=== PATIENT | female | born 1980 | race Caucasian/White ===

== ENCOUNTER 2016-10-09 13:57 | Emergency (ER) | payer MEDICAID ==
[~2016-10-09] VITALS: Ht 160 cm; Wt 84.0 kg
[~2016-10-09 13:57] MED LIST: ENOX40SY4 SQ; HYDR-3240 PO; LEVE100020 PO; METF500T4 PO; PNV1TABL4 PO
[2016-10-09] MEDS ORDERED: SODIUM CHLORIDE 0.9% 1,000 ML IV ONE (14:39)
[2016-10-09] MEDS ORDERED: ONDANSETRON 2MG/ML, 2ML IVPush ONE (15:00)
[2016-10-09] MEDS ORDERED: MORPHINE SULFATE 4 MG/ML, 1ML IVPush PRN (15:00)
[2016-10-09 15:06] LABS: HEMOGLOBIN 12.8 g/dL (11.7-16.4)
[2016-10-09 15:12] LABS: BLOOD UREA NITROGEN 27 mg/dL (7-18)
[2016-10-09] MEDS ORDERED: MORPHINE SULFATE 4 MG/ML, 1ML ONE (15:37)
[2016-10-09] MEDS ORDERED: ONDANSETRON 2MG/ML, 2ML ONE (15:37)
[2016-10-09 18:11] VITALS: BP 109/58
== END 2016-10-09 18:13 | disposition home or self-care (01) ==
LOC: ED 14:20
DX: R10.30 Lower abdominal pain, unspecified (principal); E11.9 Type 2 diabetes mellitus without complications; J45.909 Unspecified asthma, uncomplicated; Z90.49 Acquired absence of other specified parts of digestive tract; Z88.0 Allergy status to penicillin; Z88.2 Allergy status to sulfonamides
CPT/HCPCS: 36415; 76801; 80048; 82040; 85025; 96361; 96374; 96375; 99285; J2405; J7030

== ENCOUNTER 2016-11-06 09:20 | Emergency (ER) | payer SELFPAY ==
[~2016-11-06] VITALS: Ht 160 cm; Wt 77.0 kg
[~2016-11-06 09:20] MED LIST changes: +ALBU8.5H3 INH; +INSU100I17 SQ; +WARF5TAB7 PO
[2016-11-06] MEDS ORDERED: SODIUM CHLORIDE 0.9% 1,000 ML IV ONE (09:44)
[2016-11-06] MEDS ORDERED: ONDANSETRON 2MG/ML, 2ML IVPush ONE (10:00)
[2016-11-06] MEDS ORDERED: SODIUM CHLORIDE 0.9% 1,000ML IVBOLUS ONE (10:00)
[2016-11-06] MEDS ORDERED: SODIUM CHLORIDE FLUSH 10ML SYR IVF ONE (10:00)
[2016-11-06 10:22] LABS: ASPARTATE AMINO TRANSFERASE 15 U/L (15-37); BLOOD UREA NITROGEN 11 mg/dL (7-18)
[2016-11-06 10:40] LABS: PATH.CAST-FLAG NOT PRESENT; SPERM-FLAG NOT PRESENT; SRC-FLAG NOT PRESENT; XTAL-FLAG NOT PRESENT; YLC-FLAG NOT PRESENT
[2016-11-06] MEDS ORDERED: ONDANSETRON ODT 4 MG PO ONE (11:00)
[2016-11-06] MEDS ORDERED: CEFTRIAXONE 1,000 MG ONE ×2 (11:08→11:30)
[2016-11-06] MEDS ORDERED: ONDANSETRON ODT 4 MG ONE (11:09)
[2016-11-06 11:46] VITALS: BP 106/70
[2016-11-06] MEDS ORDERED: CEFTRIAXONE 1,000 MG IM ONE (12:00)
== END 2016-11-06 11:48 | disposition home or self-care (01) ==
LOC: ED 09:34
DX: D72.829 Elevated white blood cell count, unspecified (principal); N30.90 Cystitis, unspecified without hematuria; F17.200 Nicotine dependence, unspecified, uncomplicated; I10 Essential (primary) hypertension; E11.65 Type 2 diabetes mellitus with hyperglycemia; Z86.718 Personal history of other venous thrombosis and embolism
CPT/HCPCS: 36415; 71010; 80053; 81001; 82010; 84703; 85025; 85610; 87086; 96372; 99285; J0696; Q0162; 87147

== ENCOUNTER 2016-11-10 11:34 | Emergency (ER) | payer SELFPAY | END 2016-11-10 13:00 | disposition left against medical advice (07) | LOC: ED 12:54 | DX: L29.9 Pruritus, unspecified (principal) ==

== ENCOUNTER 2016-11-13 07:43 | Emergency (ER) | payer MEDICAID ==
[~2016-11-13] VITALS: Ht 160 cm; Wt 82.6 kg
[2016-11-13 07:54] VITALS: BP 107/67
[2016-11-13] MEDS ORDERED: WARF10TA PO (08:32)
[2016-11-13] MEDS ORDERED: INSU100I17 SQ (08:32)
[2016-11-13] MEDS ORDERED: WARF5TAB PO (08:32)
[2016-11-13] MEDS ORDERED: FAMOTIDINE 20 MG TABLET ONE (08:57)
[2016-11-13] MEDS ORDERED: DIPHENHYDRAMINE 50 MG/ML, 1ML ONE (08:57)
[2016-11-13] MEDS ORDERED: FAMOTIDINE 20 MG TABLET PO ONE (09:00)
[2016-11-13] MEDS ORDERED: DIPHENHYDRAMINE 50 MG/ML, 1ML IM ONE (09:00)
== END 2016-11-13 10:29 | disposition home or self-care (01) ==
LOC: ED 09:20
DX: T36.0X5A Adverse effect of penicillins, initial encounter (principal); Y92.89 Other specified places as the place of occurrence of the external cause; E11.9 Type 2 diabetes mellitus without complications; F17.210 Nicotine dependence, cigarettes, uncomplicated; I10 Essential (primary) hypertension; J45.909 Unspecified asthma, uncomplicated; Z88.8 Allergy status to other drugs, medicaments and biological substances
CPT/HCPCS: 87081; 87880; 96372; 99284; J1200

== ENCOUNTER 2016-11-17 12:12 | Emergency (ER) | payer MEDICAID ==
[~2016-11-17] VITALS: Ht 160 cm; Wt 81.6 kg
[~2016-11-17 12:12] MED LIST changes: +WARF10TA PO; +WARF5TAB PO
[2016-11-17] MEDS ORDERED: ALBUTEROL/IPRATROPIUM 2.5MG/0.5MG, 3 ML NPPB ONE (13:00)
[2016-11-17] MEDS ORDERED: ALBUTEROL SULFATE 2.5 MG/3 ML ONE (13:09)
[2016-11-17 13:52] VITALS: BP 139/67
== END 2016-11-17 13:54 | disposition home or self-care (01) ==
LOC: ED 13:48
DX: J45.31 Mild persistent asthma with (acute) exacerbation (principal); B34.9 Viral infection, unspecified; I10 Essential (primary) hypertension; E11.9 Type 2 diabetes mellitus without complications
CPT/HCPCS: 71020; 94640; 99284; J7620

== ENCOUNTER 2016-11-25 23:00 | Emergency (ER) | payer MEDICAID ==
[~2016-11-25] VITALS: Ht 165.1 cm; Wt 83.3 kg
[2016-11-25 23:02] VITALS: BP 168/75
[2016-11-26] MEDS ORDERED: LORazepam 1MG TABLET PO ONE
== END 2016-11-26 00:14 | disposition left against medical advice (07) ==
LOC: ED 23:59
DX: F15.159 Other stimulant abuse with stimulant-induced psychotic disorder, unspecified (principal); F15.129 Other stimulant abuse with intoxication, unspecified; Z90.49 Acquired absence of other specified parts of digestive tract; E11.9 Type 2 diabetes mellitus without complications
CPT/HCPCS: 99284

== ENCOUNTER 2017-01-16 08:20 | Emergency (ER) | payer MEDICAID ==
[~2017-01-16] VITALS: Ht 160 cm; Wt 85.3 kg
[2017-01-16] MEDS ORDERED: SODIUM CHLORIDE FLUSH 10ML SYR IVF ONE (09:30)
[2017-01-16] MEDS ORDERED: ONDANSETRON 2MG/ML, 2ML IVPush ONE (09:30)
[2017-01-16] MEDS ORDERED: SODIUM CHLORIDE 0.9% 1,000ML IVBOLUS ONE (09:30)
[2017-01-16] MEDS ORDERED: MORPHINE SULFATE 4 MG/ML, 1ML IVPush PRN (09:30)
[2017-01-16 09:48] LABS: BLOOD UREA NITROGEN 15 mg/dL (7-18)
[2017-01-16 09:53] LABS: ASPARTATE AMINO TRANSFERASE 18 U/L (15-37)
[2017-01-16] MEDS ORDERED: ONDANSETRON 2MG/ML, 2ML ONE (10:06)
[2017-01-16] MEDS ORDERED: MORPHINE SULFATE 4 MG/ML, 1ML ONE (10:06)
[2017-01-16] MEDS ORDERED: WARF10TA PO (10:20)
[2017-01-16] MEDS ORDERED: INSU100C5 SQ-INSULIN (10:21)
[2017-01-16] MEDS ORDERED: GABA300C10 PO (10:23)
[2017-01-16] MEDS ORDERED: OXYC10TA6 PO (10:23)
[2017-01-16] MEDS ORDERED: [UNRECOGNIZED DRUG - OTHER] PO (10:23)
[2017-01-16 11:24] VITALS: BP 100/71
== END 2017-01-16 11:35 | disposition home or self-care (01) ==
LOC: ED 11:15
DX: K52.9 Noninfective gastroenteritis and colitis, unspecified (principal); I10 Essential (primary) hypertension; F17.210 Nicotine dependence, cigarettes, uncomplicated; E11.9 Type 2 diabetes mellitus without complications; J45.909 Unspecified asthma, uncomplicated
CPT/HCPCS: 36415; 80053; 81003; 82010; 82800; 84703; 85025; 85610; 96361; 96374; 96375; 99284; J2405; J7030

== ENCOUNTER 2017-01-27 20:25 | Emergency (ER) | payer MEDICAID, OTHER ==
[~2017-01-27] VITALS: Ht 170.2 cm; Wt 88.4 kg
[~2017-01-27 20:25] MED LIST changes: +GABA300C10 PO; +INSU100C5 SQ-INSULIN; +OXYC10TA6 PO; +[UNRECOGNIZED DRUG - OTHER] PO
[2017-01-27] MEDS ORDERED: ONDANSETRON 2MG/ML, 2ML IVPush ONE (20:30)
[2017-01-27] MEDS ORDERED: SODIUM CHLORIDE FLUSH 10ML SYR IVF ONE (20:30)
[2017-01-27] MEDS ORDERED: SODIUM CHLORIDE 0.9% 1,000ML IVBOLUS ONE (20:30)
[2017-01-27] MEDS ORDERED: PLEASE ENTER HEIGHT AND WEIGHT MC SCH (21:00)
[2017-01-27 21:20] LABS: ASPARTATE AMINO TRANSFERASE 16 U/L (15-37); BLOOD UREA NITROGEN 13 mg/dL (7-18)
[2017-01-27] MEDS ORDERED: ONDANSETRON 2MG/ML, 2ML ONE (21:37)
[2017-01-27 23:35] LABS: HCG UR OBC PASS
[2017-01-28 00:34] VITALS: BP 119/74
== END 2017-01-28 00:37 | disposition home or self-care (01) ==
LOC: ED 23:08
DX: E86.0 Dehydration (principal); R11.2 Nausea with vomiting, unspecified; N30.00 Acute cystitis without hematuria; R19.7 Diarrhea, unspecified; I10 Essential (primary) hypertension; E11.65 Type 2 diabetes mellitus with hyperglycemia; J45.909 Unspecified asthma, uncomplicated; M54.30 Sciatica, unspecified side; Z90.49 Acquired absence of other specified parts of digestive tract
CPT/HCPCS: 36415; 80053; 81001; 81025; 85025; 87086; 96361; 96374; 99285; J2405; J7030

== ENCOUNTER 2017-02-21 13:24 | Inpatient (IN) | payer MEDICAID, OTHER ==
[~2017-02-21] VITALS: Ht 165.1 cm; Wt 87.7 kg
[2017-02-21] MEDS ORDERED: SODIUM CHLORIDE 0.9% 1,000ML IVBOLUS ONE (14:00)
[2017-02-21] MEDS ORDERED: LEVETIRACETAM 500 MG in SODIUM CHLORIDE 0.9% 100 ML IV ONE (14:00)
[2017-02-21] MEDS ORDERED: PLEASE ENTER HEIGHT AND WEIGHT MC SCH (14:00)
[2017-02-21] MEDS ORDERED: SODIUM CHLORIDE FLUSH 10ML SYR IVF ONE (14:00)
[2017-02-21 14:26] LABS: HEMATOCRIT 42.3 % (34.6-47.8); HEMOGLOBIN 14.3 g/dL (11.7-16.4); WHITE BLOOD COUNT 9.4 x10^3/uL (3.4-10)
[2017-02-21 14:31] LABS: BLOOD UREA NITROGEN 8 mg/dL (7-18)
[2017-02-21 14:56] LABS: PATH.CAST-FLAG NOT PRESENT; SPERM-FLAG NOT PRESENT; SRC-FLAG NOT PRESENT; XTAL-FLAG NOT PRESENT; YLC-FLAG NOT PRESENT
[2017-02-21] MEDS ORDERED: LORazepam 2 MG/ML, 1ML ONE ×3 (14:58→15:34)
[2017-02-21] MEDS ORDERED: OMEP-110 PO (15:29)
[2017-02-21] MEDS ORDERED: FLUT1AER INH (15:29)
[2017-02-21] MEDS ORDERED: PRED5TAB25 PO (15:29)
[2017-02-21] MEDS ORDERED: MULT-208 PO (15:29)
[2017-02-21] MEDS ORDERED: PHOS118S17 PO (15:30)
[2017-02-21] MEDS ORDERED: LEVE750T8 PO (15:30)
[2017-02-21] MEDS ORDERED: DIPH25CA61 PO (15:30)
[2017-02-21] MEDS ORDERED: WARF7.5T6 PO (15:30)
[2017-02-21] MEDS ORDERED: LORazepam 2 MG/ML, 1ML IVPush ONE ×3 (15:30→16:00)
[2017-02-21] MEDS ORDERED: LEVE500T8 PO (15:30)
[2017-02-21] MEDS ORDERED: CITA20TA9 PO (15:30)
[2017-02-21] MEDS ORDERED: LEVETIRACETAM 1,500 MG in SODIUM CHLORIDE 0.9% 100 ML IV ONE (15:30)
[2017-02-21] MEDS ORDERED: HUM100VI6 SQ ×2 (15:30)
[2017-02-21] MEDS ORDERED: ACET-1757 PO (15:30)
[2017-02-21] MEDS: LORazepam 2 MG/ML, 1ML IVPush PRN ×2 (16:02→20:35)
[2017-02-21] MEDS ORDERED: ONDANSETRON 2MG/ML, 2ML IVPush PRN (16:30)
[2017-02-21] MEDS ORDERED: OXYcodone IR 5MG TABLET PO PRN (16:30)
[2017-02-21] MEDS ORDERED: POLYETHYLENE GLYCOL 17 GM PACKET PO PRN (16:30)
[2017-02-21] MEDS ORDERED: LORazepam 2 MG/ML, 1ML IVPush PRN (16:30)
[2017-02-21] MEDS ORDERED: LABETALOL 5MG/ML, 20ML IVPush PRN (16:30)
[2017-02-21] MEDS: LEVETIRACETAM 1,000 MG in SODIUM CHLORIDE 0.9% 100 ML IV SCH (16:30)
[2017-02-21] MEDS: SODIUM CHLORIDE 0.9% 1,000 ML IV SCH ×2 (19:35→22:58)
[2017-02-21] MEDS: INSULIN ASPART 100 UNITS/ML, PEN SQ-INSULIN SCH (21:00)
[2017-02-21] MEDS ORDERED: LORazepam 20 MG in SODIUM CHLORIDE 0.9% 240 ML IV PRN (21:00)
[2017-02-21] MEDS ORDERED: PHYTONADIONE 10 MG/ML, 1ML SQ ONE (23:00)
[2017-02-22 01:06] VITALS: BP 118/55
[2017-02-22] MEDS: SODIUM CHLORIDE 0.9% 1,000 ML IV SCH ×3 (03:39→18:30)
[2017-02-22] MEDS: LEVETIRACETAM 1,000 MG in SODIUM CHLORIDE 0.9% 100 ML IV SCH ×2 (04:19→17:25)
[2017-02-22] MEDS: LORazepam 2 MG/ML, 1ML IVPush PRN (04:29)
[2017-02-22 04:47] LABS: HEMATOCRIT 42.2 % (34.6-47.8); HEMOGLOBIN 14.1 g/dL (11.7-16.4); WHITE BLOOD COUNT 8.5 x10^3/uL (3.4-10)
[2017-02-22 04:57] VITALS: BP 106/72
[2017-02-22 04:59] LABS: BLOOD UREA NITROGEN 7 mg/dL (7-18)
[2017-02-22 05:11] LABS: ASPARTATE AMINO TRANSFERASE 26 U/L (15-37)
[2017-02-22] MEDS: INSULIN ASPART 100 UNITS/ML, PEN SQ-INSULIN SCH ×4 (07:00→21:00)
[2017-02-22] MEDS: PANTOPROZOLE 40MG TABLET PO SCH (09:05)
[2017-02-22] MEDS: CITALOPRAM 20 MG TABLET PO SCH (09:06)
[2017-02-22] MEDS: FLUTICASONE/VILANTEROL 100-25MCG/INH INH SCH (09:06)
[2017-02-22] MEDS: SENNA/DOCUSATE TABLET PO SCH (09:06)
[2017-02-22] MEDS: ACETAMINOPHEN 325 MG TABLET PO PRN ×2 (09:11→23:51)
[2017-02-23] MEDS: SODIUM CHLORIDE 0.9% 1,000 ML IV SCH ×2 (01:39→07:55)
[2017-02-23] MEDS: LEVETIRACETAM 1,000 MG in SODIUM CHLORIDE 0.9% 100 ML IV SCH (04:27)
[2017-02-23] MEDS: ACETAMINOPHEN 325 MG TABLET PO PRN (04:30)
[2017-02-23 04:33] VITALS: BP 129/89
[2017-02-23 04:35] LABS: HEMATOCRIT 38.8 % (34.6-47.8); HEMOGLOBIN 13.1 g/dL (11.7-16.4); WHITE BLOOD COUNT 7.4 x10^3/uL (3.4-10)
[2017-02-23 04:45] LABS: ASPARTATE AMINO TRANSFERASE 21 U/L (15-37); BLOOD UREA NITROGEN 5 mg/dL (7-18)
[2017-02-23] MEDS: INSULIN ASPART 100 UNITS/ML, PEN SQ-INSULIN SCH (07:00)
[2017-02-23] MEDS: PANTOPROZOLE 40MG TABLET PO SCH (07:40)
[2017-02-23] MEDS: SENNA/DOCUSATE TABLET PO SCH (07:40)
[2017-02-23] MEDS: CITALOPRAM 20 MG TABLET PO SCH (07:40)
[2017-02-23] MEDS: FLUTICASONE/VILANTEROL 100-25MCG/INH INH SCH (07:41)
[2017-02-23] MEDS ORDERED: LEVE500T8 PO (09:38)
[2017-02-23] MEDS ORDERED: WARFARIN 5 MG TABLET PO-COUM ONE (18:00)
== END 2017-02-23 11:27 | DRG 100 ==
LOC: ED 14:06 → EDIP 16:04 → CCU 19:57
PROVIDERS: ADMIT Internal Medicine; ATTEND Internal Medicine
DX: G40.901 Epilepsy, unspecified, not intractable, with status epilepticus (principal); G93.40 Encephalopathy, unspecified; E11.9 Type 2 diabetes mellitus without complications; I10 Essential (primary) hypertension; M54.30 Sciatica, unspecified side; J45.909 Unspecified asthma, uncomplicated; Z79.01 Long term (current) use of anticoagulants; Z79.52 Long term (current) use of systemic steroids; Z81.8 Family history of other mental and behavioral disorders; Z82.3 Family history of stroke; Z82.49 Family history of ischemic heart disease and other diseases of the circulatory system; Z83.3 Family history of diabetes mellitus; Z90.49 Acquired absence of other specified parts of digestive tract; Z88.0 Allergy status to penicillin; Z88.2 Allergy status to sulfonamides; Z88.6 Allergy status to analgesic agent; Z88.8 Allergy status to other drugs, medicaments and biological substances; Z91.012 Allergy to eggs
CPT/HCPCS: 36415; 70450; 80048; 80053; 81001; 82040; 82542; 82962; 83735; 84443; 85025; 85610; 87081; 93005; 95816; 96365; 96366; 96375; J1953; J3430; J2060; J7030

== ENCOUNTER 2017-03-09 12:53 | Emergency (ER) | payer MEDICAID, OTHER ==
[~2017-03-09] VITALS: Ht 152.4 cm; Wt 84.1 kg
[~2017-03-09 12:53] MED LIST changes: +ACET-1757 PO; -ALBU8.5H3 INH; +ALBU8.5H8 INH; +CITA20TA9 PO; +DIPH25CA61 PO; +FLUT1AER INH; +HUM100VI6 SQ; +LEVE500T8 PO; +LEVE750T8 PO; +MULT-208 PO; +OMEP-110 PO; +PHOS118S17 PO; +PRED5TAB25 PO; +WARF7.5T6 PO
[2017-03-09 13:05] VITALS: BP 108/84
== END 2017-03-09 13:58 | disposition home or self-care (01) ==
LOC: ED 13:36
DX: B02.9 Zoster without complications (principal); F19.10 Other psychoactive substance abuse, uncomplicated; I10 Essential (primary) hypertension; G40.909 Epilepsy, unspecified, not intractable, without status epilepticus; E11.9 Type 2 diabetes mellitus without complications; J45.909 Unspecified asthma, uncomplicated; Z86.718 Personal history of other venous thrombosis and embolism
CPT/HCPCS: 99283

== ENCOUNTER 2017-07-16 18:23 | Emergency (ER) | payer MEDICAID ==
[~2017-07-16] VITALS: Ht 160 cm; Wt 88.0 kg
[2017-07-16 18:27] VITALS: BP 114/74
== END 2017-07-16 19:22 | disposition home or self-care (01) ==
LOC: ED 19:11
DX: O60.02 Preterm labor without delivery, second trimester (principal); Z3A.21 21 weeks gestation of pregnancy; Z53.21 Procedure and treatment not carried out due to patient leaving prior to being seen by health care provider

== ENCOUNTER 2017-07-16 19:33 | Outpatient (CLI) | payer MEDICAID ==
[2017-07-16] MEDS ORDERED: TERBUTALINE 1 MG/ML, 1ML ONE (20:18)
[2017-07-16] MEDS ORDERED: PLEASE ENTER HEIGHT AND WEIGHT MC SCH (20:30)
[2017-07-16] MEDS ORDERED: TERBUTALINE 1 MG/ML, 1ML SQ PRN (20:30)
[2017-07-16 20:54] LABS: MICROSCOPIC INDICATED
[2017-07-16 21:03] LABS: AMPHETAMINE SCREEN, URINE Negative (Negative); BARBITURATE SCREEN, URINE Negative (Negative); BENZODIAZEPINE SCREEN, URINE Negative (Negative); CANNABINOID SCREEN, URINE Negative (Negative); COCAINE SCREEN, URINE Negative (Negative); METHADONE SCREEN, URINE Negative (Negative); OPIATE SCREEN, URINE Negative (Negative)
== END 2017-07-16 22:30 | disposition home or self-care (01) ==
LOC: LDOP 19:33
PROVIDERS: ATTEND Obstetrics & Gynecology
DX: O09.892 Supervision of other high risk pregnancies, second trimester (principal); O26.892 Other specified pregnancy related conditions, second trimester; R10.9 Unspecified abdominal pain
CPT/HCPCS: 36415; 59025; 80307; 81001; 82731; 87086; 96372; 99211; J3105; G0463

== ENCOUNTER 2017-07-31 06:57 | Inpatient (IN) | payer MEDICAID ==
[~2017-07-31] VITALS: Ht 160 cm; Wt 89.6 kg
[2017-07-31] MEDS ORDERED: SODIUM CHLORIDE 0.9% 1,000 ML IV ONE (07:35)
[2017-07-31] MEDS ORDERED: ONDANSETRON 2MG/ML, 2ML IVPush ONE (08:00)
[2017-07-31] MEDS ORDERED: SODIUM CHLORIDE 0.9% 1,000ML IVBOLUS ONE ×2 (08:00→08:30)
[2017-07-31 08:01] LABS: RAPID INFLUENZA A Negative (Negative); RAPID INFLUENZA B Negative (Negative)
[2017-07-31 08:14] LABS: BASOPHILS % (AUTO) 0 % (0-1); EOSINOPHILS # (AUTO) 0.06 x10^3/uL (0-0.4); EOSINOPHILS % (AUTO) 0 % (1-7); LYMPHOCYTES % (AUTO) 17 % (22-44); MD NO; MEAN CORPUSCULAR HEMOGLOBIN 31.6 pg (27.0-34.8); MEAN CORPUSCULAR HGB CONC 34.2 g/dL (32.4-35.8); MEAN CORPUSCULAR VOLUME 92.7 fL (80-100); MEAN PLATELET VOLUME 7.4 fL (7.4-10.4); MONOCYTES % (AUTO) 5 % (2-9); NEUTROPHILS # (AUTO) 12.08 x10^3/uL (1.8-6.8); NEUTROPHILS % (AUTO) 78 % (42-75); PLATELET COUNT 312 x10^3/uL (130-400); RED BLOOD COUNT 4.03 x10^6/uL (3.82-5.3); RED CELL DISTRIBUTION WIDTH 12.6 % (9.6-15.2)
[2017-07-31 08:24] LABS: ALANINE AMINOTRANSFERASE 13 U/L (12-78); ALBUMIN 2.3 g/dL (3.4-5.0); ANION GAP 7 mmol/L (5-15); CALCIUM 7.9 mg/dL (8.5-10.1); CHLORIDE 107 mmol/L (98-107); CREATININE 0.54 mg/dL (0.55-1.02)
[2017-07-31] MEDS ORDERED: ONDANSETRON 2MG/ML, 2ML ONE (08:37)
[2017-07-31] MEDS ORDERED: CEFTRIAXONE PMX 1GM/50ML 50 ML ONE ×2 (08:38→09:20)
[2017-07-31 08:44] LABS: ALKALINE PHOSPHATASE 70 U/L (45-117); BILIRUBIN,TOTAL 0.2 mg/dL (0.2-1.0); TOTAL PROTEIN 5.8 g/dL (6.4-8.2)
[2017-07-31] MEDS ORDERED: AZITHROMYCIN 500 MG in SODIUM CHLORIDE 0.9% 250 ML IV ONE (09:00)
[2017-07-31] MEDS ORDERED: CEFTRIAXONE PMX 1GM/50ML 50 ML IVPB ONE (09:00)
[2017-07-31] MEDS ORDERED: INSU100C SQ-INSULIN (09:18)
[2017-07-31] MEDS ORDERED: PREN-3 PO (09:18)
[2017-07-31] MEDS ORDERED: NPH,100V SC (09:18)
[2017-07-31] MEDS ORDERED: ENOX60SY4 SC (09:18)
[2017-07-31] MEDS ORDERED: LEVE100020 PO (09:18)
[2017-07-31 13:15] VITALS: BP 99/63
[2017-07-31] MEDS ORDERED: morphine SULFATE 10 MG/ML, 1ML IVPush PRN (18:00)
[2017-07-31] MEDS ORDERED: OXYcodone IR 5MG TABLET PO PRN (18:00)
[2017-07-31] MEDS: INSULIN LISPRO 100 UNITS/ML, PEN SQ-INSULIN SCH ×2 (18:00→21:00)
[2017-07-31] MEDS ORDERED: POLYETHYLENE GLYCOL 17 GM PACKET PO PRN (18:00)
[2017-07-31] MEDS ORDERED: hydrALAzine 20 MG/ML, 1ML IVPush PRN (18:00)
[2017-07-31] MEDS ORDERED: POTASSIUM CHLORIDE 20 MEQ TAB.ER.PRT PO ONE (18:00)
[2017-07-31 18:09] LABS: FREE T4 (FREE THYROXINE) 1.07 ng/dL (0.76-1.46)
[2017-07-31 18:19] LABS: HEMOGLOBIN A1C 5.1 % (4.2-6.3)
[2017-07-31 18:50] VITALS: BP 104/68
[2017-07-31] MEDS ORDERED: ALBUTEROL SULFATE 2.5 MG/3 ML ONE (19:14)
[2017-07-31 19:24] LABS: MICROSCOPIC NOT IND
[2017-07-31 19:29] LABS: CULTURE INDICATED? NO
[2017-07-31] MEDS ORDERED: ALUMINUM/MAG/SIMETHICONE 30 ML UDC PO PRN (19:30)
[2017-07-31] MEDS ORDERED: ALBUTEROL SULFATE 2.5 MG/3 ML NPPB PRN (19:30)
[2017-07-31] MEDS: ALBUTEROL SULFATE 2.5 MG/3 ML NPPB SCH (19:30)
[2017-07-31] MEDS ORDERED: LEVETIRACETAM 500 MG TABLET ONE (19:44)
[2017-07-31] MEDS: LEVETIRACETAM 500 MG TABLET PO SCH (19:52)
[2017-07-31] MEDS: CEFTRIAXONE PMX 1GM/50ML 50 ML IV SCH (19:52)
[2017-07-31] MEDS: ENOXAPARIN 100 MG/ML SQ SCH (19:53)
[2017-07-31] MEDS: INSULIN GLARGINE 100 UNITS/ML, PEN SQ-INSULIN SCH (21:00)
[2017-07-31] MEDS: ACETAMINOPHEN 325 MG TABLET PO PRN (22:09)
[2017-08-01 04:20] VITALS: BP 96/52
[2017-08-01] MEDS: ACETAMINOPHEN 325 MG TABLET PO PRN ×2 (04:40→14:09)
[2017-08-01] MEDS: ALBUTEROL SULFATE 2.5 MG/3 ML NPPB SCH ×4 (05:01→19:45)
[2017-08-01 05:26] LABS: BASOPHILS # (AUTO) 0.04 x10^3/uL (0-0.1); BASOPHILS % (AUTO) 0 % (0-1); EOSINOPHILS # (AUTO) 0.04 x10^3/uL (0-0.4); EOSINOPHILS % (AUTO) 0 % (1-7); LYMPHOCYTES % (AUTO) 32 % (22-44); MD NO; MEAN CORPUSCULAR HGB CONC 34.5 g/dL (32.4-35.8); MEAN CORPUSCULAR VOLUME 92.6 fL (80-100); MEAN PLATELET VOLUME 7.4 fL (7.4-10.4); MONOCYTES # (AUTO) 0.71 x10^3/uL (0.2-0.8); MONOCYTES % (AUTO) 6 % (2-9); NEUTROPHILS # (AUTO) 8.06 x10^3/uL (1.8-6.8); NEUTROPHILS % (AUTO) 62 % (42-75); PLATELET COUNT 265 x10^3/uL (130-400); RED BLOOD COUNT 3.72 x10^6/uL (3.82-5.3)
[2017-08-01 05:32] LABS: CHLORIDE 109 mmol/L (98-107)
[2017-08-01 05:47] LABS: ALANINE AMINOTRANSFERASE 9 U/L (12-78); ALKALINE PHOSPHATASE 64 U/L (45-117); ANION GAP 11 mmol/L (5-15); BILIRUBIN,TOTAL 0.2 mg/dL (0.2-1.0); CALCIUM 7.6 mg/dL (8.5-10.1); CHOLESTEROL, TOTAL 189 mg/dL (140-239); CREATININE 0.37 mg/dL (0.55-1.02); HDL CHOL % 25 % (28-40); HDL CHOLESTEROL (DIRECT) 47 mg/dL (40-60); LDL CHOLESTEROL,CALCULATED 101 mg/dL (54-169); LDL/HDL RATIO 2.1 (0.5-3.0); THYROID STIMULATING HORMONE 0.792 mIU/L (0.358-3.740); TOTAL PROTEIN 5.4 g/dL (6.4-8.2); TRIGLYCERIDES 205 mg/dL (50-200); VLDL CHOLESTEROL 41 mg/dL (0-25)
[2017-08-01] MEDS: INSULIN LISPRO 100 UNITS/ML, PEN SQ-INSULIN SCH ×4 (07:00→20:57)
[2017-08-01 07:18] VITALS: BP 100/64
[2017-08-01] MEDS: ENOXAPARIN 100 MG/ML SQ SCH ×2 (09:05→19:57)
[2017-08-01] MEDS: LEVETIRACETAM 500 MG TABLET PO SCH ×2 (09:05→19:57)
[2017-08-01] MEDS: AZITHROMYCIN 500 MG TABLET PO SCH (09:05)
[2017-08-01] MEDS: PRENATAL VIT/IRON/FA 1 EACH TABLET PO SCH (10:06)
[2017-08-01 13:48] VITALS: BP 87/56
[2017-08-01] MEDS: CEFTRIAXONE PMX 1GM/50ML 50 ML IV SCH (18:42)
[2017-08-01 19:19] VITALS: BP 92/57
[2017-08-01] MEDS: INSULIN GLARGINE 100 UNITS/ML, PEN SQ-INSULIN SCH (20:57)
[2017-08-02 01:03] VITALS: BP 95/60
[2017-08-02 06:16] LABS: BASOPHILS # (AUTO) 0.05 x10^3/uL (0-0.1); BASOPHILS % (AUTO) 0 % (0-1); EOSINOPHILS # (AUTO) 0.06 x10^3/uL (0-0.4); EOSINOPHILS % (AUTO) 0 % (1-7); LYMPHOCYTES # (AUTO) 4.03 x10^3/uL (1-3.4); LYMPHOCYTES % (AUTO) 26 % (22-44); MD NO; MEAN CORPUSCULAR HEMOGLOBIN 31.9 pg (27.0-34.8); MEAN CORPUSCULAR HGB CONC 33.9 g/dL (32.4-35.8); MEAN CORPUSCULAR VOLUME 94.2 fL (80-100); MEAN PLATELET VOLUME 7.8 fL (7.4-10.4); MONOCYTES # (AUTO) 0.52 x10^3/uL (0.2-0.8); MONOCYTES % (AUTO) 3 % (2-9); NEUTROPHILS # (AUTO) 10.97 x10^3/uL (1.8-6.8); NEUTROPHILS % (AUTO) 70 % (42-75); PLATELET COUNT 301 x10^3/uL (130-400); RED BLOOD COUNT 4.02 x10^6/uL (3.82-5.3); RED CELL DISTRIBUTION WIDTH 12.7 % (9.6-15.2)
[2017-08-02 06:32] LABS: CHLORIDE 107 mmol/L (98-107)
[2017-08-02 06:37] LABS: ANION GAP 10 mmol/L (5-15); CALCIUM 8.2 mg/dL (8.5-10.1); CREATININE 0.42 mg/dL (0.55-1.02)
[2017-08-02] MEDS: INSULIN LISPRO 100 UNITS/ML, PEN SQ-INSULIN SCH (07:00)
[2017-08-02 08:10] VITALS: BP 95/59
[2017-08-02] MEDS ORDERED: POTASSIUM CHLORIDE 20 MEQ TAB.ER.PRT PO ONE (09:00)
[2017-08-02] MEDS: ENOXAPARIN 100 MG/ML SQ SCH ×2 (09:09→20:44)
[2017-08-02] MEDS: AZITHROMYCIN 500 MG TABLET PO SCH (09:09)
[2017-08-02] MEDS: PRENATAL VIT/IRON/FA 1 EACH TABLET PO SCH (09:09)
[2017-08-02] MEDS: LEVETIRACETAM 500 MG TABLET PO SCH ×2 (09:09→20:44)
[2017-08-02 12:53] VITALS: BP 95/58
[2017-08-02] MEDS: CEFTRIAXONE PMX 1GM/50ML 50 ML IV SCH (17:36)
[2017-08-02 19:34] VITALS: BP 100/54
[2017-08-02] MEDS: ALBUTEROL SULFATE 2.5 MG/3 ML NPPB SCH (20:00)
[2017-08-02] MEDS: INSULIN GLARGINE 100 UNITS/ML, PEN SQ-INSULIN SCH (20:52)
[2017-08-03] MEDS: ACETAMINOPHEN 325 MG TABLET PO PRN ×2 (02:01→23:00)
[2017-08-03 02:10] VITALS: BP 106/58
[2017-08-03] MEDS: ALBUTEROL SULFATE 2.5 MG/3 ML NPPB SCH ×4 (02:40→14:45)
[2017-08-03 07:05] VITALS: BP 102/66
[2017-08-03] MEDS: PRENATAL VIT/IRON/FA 1 EACH TABLET PO SCH (09:59)
[2017-08-03] MEDS: LEVETIRACETAM 500 MG TABLET PO SCH ×2 (09:59→22:25)
[2017-08-03] MEDS: AZITHROMYCIN 500 MG TABLET PO SCH (09:59)
[2017-08-03] MEDS: ENOXAPARIN 100 MG/ML SQ SCH ×2 (09:59→22:25)
[2017-08-03 12:35] VITALS: BP 102/66
[2017-08-03 18:46] LABS: AMPHETAMINE SCREEN, URINE Negative (Negative); BARBITURATE SCREEN, URINE Negative (Negative); BENZODIAZEPINE SCREEN, URINE Negative (Negative); CANNABINOID SCREEN, URINE Negative (Negative); COCAINE SCREEN, URINE Negative (Negative); METHADONE SCREEN, URINE Negative (Negative); OPIATE SCREEN, URINE Negative (Negative)
[2017-08-03] MEDS: CEFTRIAXONE PMX 1GM/50ML 50 ML IV SCH (18:47)
[2017-08-03 19:15] VITALS: BP 102/50
[2017-08-03] MEDS: INSULIN GLARGINE 100 UNITS/ML, PEN SQ-INSULIN SCH (21:00)
[2017-08-03 22:05] VITALS: BP 95/65
[2017-08-03] MEDS: SODIUM CHLORIDE FLUSH 10ML SYR IVF SCH (22:25)
[2017-08-04 03:00] VITALS: BP 98/64
[2017-08-04 06:04] LABS: BASOPHILS # (AUTO) 0.03 x10^3/uL (0-0.1); BASOPHILS % (AUTO) 0 % (0-1); EOSINOPHILS # (AUTO) 0.04 x10^3/uL (0-0.4); EOSINOPHILS % (AUTO) 1 % (1-7); LYMPHOCYTES # (AUTO) 2.25 x10^3/uL (1-3.4); LYMPHOCYTES % (AUTO) 23 % (22-44); MD NO; MEAN CORPUSCULAR HEMOGLOBIN 31.7 pg (27.0-34.8); MEAN CORPUSCULAR HGB CONC 33.9 g/dL (32.4-35.8); MEAN CORPUSCULAR VOLUME 93.7 fL (80-100); MEAN PLATELET VOLUME 8.2 fL (7.4-10.4); MONOCYTES # (AUTO) 0.44 x10^3/uL (0.2-0.8); MONOCYTES % (AUTO) 5 % (2-9); NEUTROPHILS # (AUTO) 6.99 x10^3/uL (1.8-6.8); NEUTROPHILS % (AUTO) 72 % (42-75); PLATELET COUNT 332 x10^3/uL (130-400); RED BLOOD COUNT 4.13 x10^6/uL (3.82-5.3); RED CELL DISTRIBUTION WIDTH 12.1 % (9.6-15.2)
[2017-08-04 06:05] LABS: ANION GAP 11 mmol/L (5-15); CALCIUM 8.4 mg/dL (8.5-10.1); CHLORIDE 106 mmol/L (98-107)
[2017-08-04 06:07] LABS: CREATININE 0.37 mg/dL (0.55-1.02)
[2017-08-04] MEDS: ENOXAPARIN 100 MG/ML SQ SCH (07:30)
[2017-08-04 08:03] VITALS: BP 93/60
[2017-08-04] MEDS: AZITHROMYCIN 500 MG TABLET PO SCH (09:14)
[2017-08-04] MEDS: LEVETIRACETAM 500 MG TABLET PO SCH ×2 (09:14→21:15)
[2017-08-04] MEDS: PRENATAL VIT/IRON/FA 1 EACH TABLET PO SCH (09:14)
[2017-08-04] MEDS: ENOXAPARIN 80 MG/0.8 ML SQ SCH ×2 (09:15→21:15)
[2017-08-04] MEDS: SODIUM CHLORIDE FLUSH 10ML SYR IVF SCH ×2 (09:15→21:15)
[2017-08-04] MEDS: DOCUSATE 100 MG CAPSULE PO PRN (09:20)
[2017-08-04] MEDS ORDERED: POTASSIUM CHLORIDE 10% 20 MEQ/15 ML UDC PO ONE (09:30)
[2017-08-04 13:01] VITALS: BP 98/64
[2017-08-04 13:45] LABS: MICROSCOPIC NOT IND
[2017-08-04 13:48] LABS: CULTURE INDICATED? NO
[2017-08-04] MEDS: CEFTRIAXONE PMX 1GM/50ML 50 ML IV SCH (18:53)
[2017-08-04 21:00] VITALS: BP 98/64
[2017-08-05 00:36] VITALS: BP 98/66
[2017-08-05 05:52] LABS: CHLORIDE 109 mmol/L (98-107)
[2017-08-05 06:10] LABS: ANION GAP 12 mmol/L (5-15); CALCIUM 8.2 mg/dL (8.5-10.1); CREATININE 0.39 mg/dL (0.55-1.02)
[2017-08-05 06:48] VITALS: BP 105/66
[2017-08-05] MEDS: SODIUM CHLORIDE FLUSH 10ML SYR IVF SCH ×2 (09:00→20:25)
[2017-08-05] MEDS: ENOXAPARIN 80 MG/0.8 ML SQ SCH ×3 (09:23→21:43)
[2017-08-05] MEDS: AZITHROMYCIN 500 MG TABLET PO SCH (09:23)
[2017-08-05] MEDS: LEVETIRACETAM 500 MG TABLET PO SCH ×2 (09:23→20:26)
[2017-08-05] MEDS: PRENATAL VIT/IRON/FA 1 EACH TABLET PO SCH (09:23)
[2017-08-05] MEDS ORDERED: MAGNESIUM SULFATE PMX 2GM/50ML 50 ML IV ONE (12:30)
[2017-08-05 14:00] VITALS: BP 97/65
[2017-08-05] MEDS ORDERED: POTASSIUM CHLORIDE 20 MEQ TAB.ER.PRT PO SCH (17:00)
[2017-08-05] MEDS: CEFTRIAXONE PMX 1GM/50ML 50 ML IV SCH (18:03)
[2017-08-05 19:27] VITALS: BP 105/69
[2017-08-05] MEDS: ACETAMINOPHEN 325 MG TABLET PO PRN (20:25)
[2017-08-05] MEDS: DOCUSATE 100 MG CAPSULE PO PRN (20:26)
[2017-08-06 01:06] VITALS: BP 95/53
[2017-08-06 08:33] VITALS: BP 103/53
[2017-08-06] MEDS: AZITHROMYCIN 500 MG TABLET PO SCH (08:53)
[2017-08-06] MEDS: PRENATAL VIT/IRON/FA 1 EACH TABLET PO SCH (08:53)
[2017-08-06] MEDS: LEVETIRACETAM 500 MG TABLET PO SCH (08:53)
[2017-08-06] MEDS: SODIUM CHLORIDE FLUSH 10ML SYR IVF SCH (08:53)
[2017-08-06] MEDS: ENOXAPARIN 80 MG/0.8 ML SQ SCH (08:53)
[2017-08-06] MEDS ORDERED: MAGNESIUM CHLORIDE 64 MG TABLET.DR PO SCH (09:00)
[2017-08-06 14:16] VITALS: BP 91/48
[2017-08-06] MEDS ORDERED: AZIT500T5 PO (14:27)
[2017-08-06] MEDS ORDERED: CEFD300C37 PO (14:27)
== END 2017-08-06 15:43 | disposition home or self-care (01) | DRG 781 ==
LOC: ED 07:50 → EDIP 11:34 → 3NE 12:27 → LDIP 08-03 17:42 → 3NE 08-03 22:14
PROVIDERS: ADMIT Obstetrics & Gynecology; ATTEND Internal Medicine
DX: O98.812 Other maternal infectious and parasitic diseases complicating pregnancy, second trimester (principal); A41.9 Sepsis, unspecified organism; J18.0 Bronchopneumonia, unspecified organism; E44.0 Moderate protein-calorie malnutrition; D68.59 Other primary thrombophilia; O24.912 Unspecified diabetes mellitus in pregnancy, second trimester; E27.40 Unspecified adrenocortical insufficiency; O99.282 Endocrine, nutritional and metabolic diseases complicating pregnancy, second trimester; O99.342 Other mental disorders complicating pregnancy, second trimester; O99.352 Diseases of the nervous system complicating pregnancy, second trimester; O99.512 Diseases of the respiratory system complicating pregnancy, second trimester; Z68.35 Body mass index [BMI] 35.0-35.9, adult; E87.6 Hypokalemia; G40.909 Epilepsy, unspecified, not intractable, without status epilepticus; J45.909 Unspecified asthma, uncomplicated; M54.30 Sciatica, unspecified side; O25.12 Malnutrition in pregnancy, second trimester; Z3A.23 23 weeks gestation of pregnancy; F29 Unspecified psychosis not due to a substance or known physiological condition; Z59.0 Homelessness; Z79.4 Long term (current) use of insulin; Z87.891 Personal history of nicotine dependence
CPT/HCPCS: 36415; 71046; 76805; 80048; 80053; 80061; 80307; 81003; 82962; 83036; 83605; 83690; 83735; 83880; 84145; 84439; 84443; 85025; 87040; 87070; 87205; 87400; 93005; 93306; 94640; 96361; 96365; 96366; 96368; 96375; J0456; J0696; J1650; J2405; J7613; J1815; J3475; J7030; J7050

== ENCOUNTER 2017-09-02 13:57 | Emergency (ER) | payer MEDICAID ==
[~2017-09-02] VITALS: Ht 160 cm; Wt 90.0 kg
[~2017-09-02 13:57] MED LIST changes: +AZIT500T5 PO; +CEFD300C37 PO; +ENOX60SY4 SC; +INSU100C SQ-INSULIN; +NPH,100V SC; +PREN-3 PO
[2017-09-02] MEDS ORDERED: ACETAMINOPHEN 325 MG TABLET PO ONE (15:00)
[2017-09-02] MEDS ORDERED: ACETAMINOPHEN 325 MG TABLET ONE (15:28)
[2017-09-02 15:33] VITALS: BP 102/66
== END 2017-09-02 16:42 | disposition home or self-care (01) ==
LOC: ED 16:31
DX: M79.662 Pain in left lower leg (principal); I10 Essential (primary) hypertension; E11.9 Type 2 diabetes mellitus without complications; Z86.718 Personal history of other venous thrombosis and embolism
CPT/HCPCS: 99284

== ENCOUNTER 2017-10-16 13:32 | Emergency (ER) | payer MEDICAID ==
[~2017-10-16] VITALS: Ht 160 cm; Wt 95.9 kg
[~2017-10-16 13:32] MED LIST changes: +WARF-36 PO; -WARF5TAB7 PO
[2017-10-16 14:09] LABS: CULTURE INDICATED? YES; MICROSCOPIC INDICATED
[2017-10-16] MEDS ORDERED: ONDANSETRON ODT 4 MG PO ONE (14:30)
[2017-10-16 15:11] LABS: BASOPHILS # (AUTO) 0.03 x10^3/uL (0-0.1); BASOPHILS % (AUTO) 0 % (0-1); EOSINOPHILS # (AUTO) 0.06 x10^3/uL (0-0.4); EOSINOPHILS % (AUTO) 0 % (1-7); LYMPHOCYTES # (AUTO) 3.69 x10^3/uL (1-3.4); LYMPHOCYTES % (AUTO) 28 % (22-44); MD NO; MEAN CORPUSCULAR HEMOGLOBIN 32.3 pg (27.0-34.8); MEAN CORPUSCULAR HGB CONC 34.3 g/dL (32.4-35.8); MEAN CORPUSCULAR VOLUME 94.1 fL (80-100); MEAN PLATELET VOLUME 7.6 fL (7.4-10.4); MONOCYTES # (AUTO) 0.57 x10^3/uL (0.2-0.8); MONOCYTES % (AUTO) 4 % (2-9); NEUTROPHILS # (AUTO) 8.99 x10^3/uL (1.8-6.8); NEUTROPHILS % (AUTO) 67 % (42-75); PLATELET COUNT 321 x10^3/uL (130-400); RED BLOOD COUNT 4.62 x10^6/uL (3.82-5.3)
[2017-10-16 15:22] LABS: ALBUMIN 2.7 g/dL (3.4-5.0); ANION GAP 11 mmol/L (5-15); CALCIUM 8.6 mg/dL (8.5-10.1); CHLORIDE 108 mmol/L (98-107)
[2017-10-16 15:27] LABS: ALANINE AMINOTRANSFERASE 18 U/L (12-78); ALKALINE PHOSPHATASE 94 U/L (45-117); BILIRUBIN,TOTAL 0.4 mg/dL (0.2-1.0); CREATININE 0.45 mg/dL (0.55-1.02)
[2017-10-16] MEDS ORDERED: ONDANSETRON ODT 4 MG ONE (15:28)
[2017-10-16 15:57] VITALS: BP 121/79
== END 2017-10-16 17:04 | disposition home or self-care (01) ==
LOC: ED 16:40
DX: O21.0 Mild hyperemesis gravidarum (principal); Z3A.33 33 weeks gestation of pregnancy; O99.333 Smoking (tobacco) complicating pregnancy, third trimester; O99.283 Endocrine, nutritional and metabolic diseases complicating pregnancy, third trimester; E86.0 Dehydration
CPT/HCPCS: 36415; 80053; 81001; 85025; 87086; 99284; Q0162

== ENCOUNTER 2018-06-18 20:17 | Emergency (ER) | payer MEDICAID ==
[~2018-06-18] VITALS: Ht 160 cm; Wt 83.0 kg
[~2018-06-18 20:17] MED LIST changes: +METF500T17 PO; -METF500T4 PO; +WARF7.5T46 PO; -WARF7.5T6 PO
[2018-06-18 20:27] VITALS: BP 106/68
[2018-06-18] MEDS ORDERED: SODIUM CHLORIDE FLUSH 10ML SYR IVF ONE (20:30)
[2018-06-18] MEDS ORDERED: FAMOTIDINE 20 MG/2 ML IVP ONE (20:30)
[2018-06-18] MEDS ORDERED: ONDANSETRON 2MG/ML, 2ML IVPush ONE (20:30)
[2018-06-18] MEDS ORDERED: ONDANSETRON ODT 4 MG ONE (20:52)
[2018-06-18] MEDS ORDERED: MECLIZINE CHEWABLE 25 MG TAB ONE (20:52)
[2018-06-18] MEDS ORDERED: FAMOTIDINE 20 MG TABLET ONE (20:52)
[2018-06-18 20:53] LABS: BASOPHILS # (AUTO) 0.04 x10^3/uL (0-0.1); BASOPHILS % (AUTO) 0 % (0-1); EOSINOPHILS # (AUTO) 0.05 x10^3/uL (0-0.4); EOSINOPHILS % (AUTO) 1 % (1-7); LYMPHOCYTES # (AUTO) 2.36 x10^3/uL (1-3.4); LYMPHOCYTES % (AUTO) 24 % (22-44); MD NO; MEAN CORPUSCULAR HEMOGLOBIN 30.5 pg (27.0-34.8); MEAN CORPUSCULAR HGB CONC 34.3 g/dL (32.4-35.8); MEAN CORPUSCULAR VOLUME 89.1 fL (80-100); MEAN PLATELET VOLUME 7.6 fL (7.4-10.4); MONOCYTES # (AUTO) 0.37 x10^3/uL (0.2-0.8); MONOCYTES % (AUTO) 4 % (2-9); NEUTROPHILS # (AUTO) 6.87 x10^3/uL (1.8-6.8); NEUTROPHILS % (AUTO) 71 % (42-75); PLATELET COUNT 320 x10^3/uL (130-400); RED BLOOD COUNT 5.42 x10^6/uL (3.82-5.3); RED CELL DISTRIBUTION WIDTH 13.5 % (9.6-15.2)
[2018-06-18] MEDS ORDERED: ONDANSETRON ODT 4 MG PO ONE (21:00)
[2018-06-18] MEDS ORDERED: FAMOTIDINE 20 MG TABLET PO ONE (21:00)
[2018-06-18] MEDS ORDERED: MECLIZINE CHEWABLE 25 MG TAB PO ONE (21:00)
[2018-06-18 21:07] LABS: ALANINE AMINOTRANSFERASE 20 U/L (12-78); ALBUMIN 3.7 g/dL (3.4-5.0); ANION GAP 11 mmol/L (5-15); CALCIUM 8.9 mg/dL (8.5-10.1); CHLORIDE 109 mmol/L (98-107); CREATININE 0.89 mg/dL (0.55-1.02)
[2018-06-18 21:12] LABS: ALKALINE PHOSPHATASE 71 U/L (45-117); BILIRUBIN,TOTAL 0.6 mg/dL (0.2-1.0); TOTAL PROTEIN 7.6 g/dL (6.4-8.2)
[2018-06-18 21:52] LABS: CULTURE INDICATED? YES; MICROSCOPIC INDICATED
== END 2018-06-18 22:45 | disposition home or self-care (01) ==
LOC: ED 22:37
DX: R11.2 Nausea with vomiting, unspecified (principal); R42 Dizziness and giddiness; E11.65 Type 2 diabetes mellitus with hyperglycemia; J45.909 Unspecified asthma, uncomplicated; G40.909 Epilepsy, unspecified, not intractable, without status epilepticus; I10 Essential (primary) hypertension
CPT/HCPCS: 36415; 80053; 81001; 83690; 84703; 85025; 87086; 99284; Q0162

== ENCOUNTER 2018-08-22 10:17 | Emergency (ER) | payer MEDICAID ==
[~2018-08-22] VITALS: Ht 160 cm; Wt 83.0 kg
[~2018-08-22 10:17] MED LIST changes: +QUET1TAB PO; +WARF1TAB PO
[2018-08-22 10:22] VITALS: BP 115/82
[2018-08-22] MEDS ORDERED: ONDANSETRON ODT 4 MG PO ONE (11:30)
[2018-08-22 12:06] LABS: BASOPHILS # (AUTO) 0.05 x10^3/uL (0-0.1); BASOPHILS % (AUTO) 1 % (0-1); EOSINOPHILS # (AUTO) 0.07 x10^3/uL (0-0.4); EOSINOPHILS % (AUTO) 1 % (1-7); LYMPHOCYTES # (AUTO) 3.32 x10^3/uL (1-3.4); LYMPHOCYTES % (AUTO) 41 % (22-44); MD NO; MEAN CORPUSCULAR HGB CONC 33.9 g/dL (32.4-35.8); MEAN CORPUSCULAR VOLUME 88.5 fL (80-100); MEAN PLATELET VOLUME 7.5 fL (7.4-10.4); MONOCYTES # (AUTO) 0.39 x10^3/uL (0.2-0.8); MONOCYTES % (AUTO) 5 % (2-9); NEUTROPHILS # (AUTO) 4.22 x10^3/uL (1.8-6.8); NEUTROPHILS % (AUTO) 52 % (42-75); PLATELET COUNT 329 x10^3/uL (130-400); RED BLOOD COUNT 5.64 x10^6/uL (3.82-5.3); RED CELL DISTRIBUTION WIDTH 12.5 % (9.6-15.2)
[2018-08-22 12:11] LABS: ALANINE AMINOTRANSFERASE 24 U/L (12-78); ALBUMIN 4.2 g/dL (3.4-5.0); ANION GAP 9 mmol/L (5-15); CALCIUM 9.9 mg/dL (8.5-10.1); CHLORIDE 107 mmol/L (98-107); CREATININE 0.74 mg/dL (0.55-1.02)
[2018-08-22 12:16] LABS: ALKALINE PHOSPHATASE 75 U/L (45-117); BILIRUBIN,TOTAL 0.2 mg/dL (0.2-1.0); TOTAL PROTEIN 8.2 g/dL (6.4-8.2)
[2018-08-22 12:44] LABS: MICROSCOPIC AUTO
[2018-08-22 12:45] LABS: CULTURE INDICATED? YES
[2018-08-22] MEDS ORDERED: PROMETHAZINE 25 MG/ML, 1ML IM ONE (13:00)
[2018-08-22] MEDS ORDERED: ONDANSETRON ODT 4 MG ONE (13:02)
[2018-08-22] MEDS ORDERED: PROMETHAZINE 25 MG/ML, 1ML ONE (13:02)
--- NOTE | 2018-08-22 13:06 | NUR ---
PT UA SENT TO LAB. PT MEDICATED PER EMAR.
--- NOTE | 2018-08-22 13:15 | NUR ---
LATE ENTRY: PT BIB EMS TODAY. PT HAS GI SYMPTOMS THAT STARTED THIS MORNING. PT REPORTS SHE HAD EMESIS AND NOT FEELING WELL AND UANBLE TO EAT ALL DAY. PT REPORTS NOT EATING ANY NEW FOODS. PT CONNECTED TO MONITORS AND CALL LIGHT IN REACH. PTS BUSHRAS AND MARLENE.
--- NOTE | 2018-08-22 14:09 | NUR ---
Patient/Caregiver given discharge instructions and they have confirmed that they understand the instructions. Patient ambulatory with steady gait.
== END 2018-08-22 14:37 | disposition home or self-care (01) ==
LOC: ED 12:16
DX: N30.01 Acute cystitis with hematuria (principal); I10 Essential (primary) hypertension; E11.9 Type 2 diabetes mellitus without complications; J45.909 Unspecified asthma, uncomplicated; G43.909 Migraine, unspecified, not intractable, without status migrainosus; F29 Unspecified psychosis not due to a substance or known physiological condition; Z88.0 Allergy status to penicillin; Z88.2 Allergy status to sulfonamides; Z88.6 Allergy status to analgesic agent; Z91.012 Allergy to eggs; Z90.49 Acquired absence of other specified parts of digestive tract; Z90.89 Acquired absence of other organs; Z72.9 Problem related to lifestyle, unspecified
CPT/HCPCS: 36415; 80053; 81001; 83690; 84703; 85025; 87086; 93005; 96372; 99284; J2550; Q0162

== ENCOUNTER 2018-08-29 12:21 | Emergency (ER) | payer MEDICAID ==
[~2018-08-29] VITALS: Ht 160 cm; Wt 87.1 kg
--- NOTE | 2018-08-29 12:40 | NUR ---
pt presents to ED with c/o sacral pain x 3 days, denies any other sx. denies injury/trauma. pt ambulatory with steady gait. cms intact to bilateral legs. pt a&o, resps even and unlabored. awaiting provider and orders at this time.
[2018-08-29] MEDS ORDERED: METHOCARBAMOL 750 MG TABLET ONE (13:28)
[2018-08-29] MEDS ORDERED: KETOROLAC 30 MG/1 ML ONE (13:28)
[2018-08-29] MEDS ORDERED: METHOCARBAMOL 750 MG TABLET PO ONE (13:30)
[2018-08-29] MEDS ORDERED: KETOROLAC 30 MG/1 ML IM ONE (13:30)
[2018-08-29 15:08] VITALS: BP 108/78
--- NOTE | 2018-08-29 15:10 | NUR ---
pt states pain resolved. pt a&o, resps even and unlabored. pt given dc instructions and rx. pt educated regarding dc rx for robaxan and motrin rx. pt edcuated not to drive d/t med given. pt amb to dc desk with steady gait, nadn at dc.
== END 2018-08-29 15:10 | disposition home or self-care (01) ==
LOC: ED 13:15
DX: S39.012A Strain of muscle, fascia and tendon of lower back, initial encounter (principal); G40.909 Epilepsy, unspecified, not intractable, without status epilepticus; E11.9 Type 2 diabetes mellitus without complications; I10 Essential (primary) hypertension; Z90.49 Acquired absence of other specified parts of digestive tract; Z86.718 Personal history of other venous thrombosis and embolism; Z72.9 Problem related to lifestyle, unspecified; Z88.0 Allergy status to penicillin; Z88.2 Allergy status to sulfonamides; Z88.1 Allergy status to other antibiotic agents; X58.XXXA Exposure to other specified factors, initial encounter; F17.200 Nicotine dependence, unspecified, uncomplicated; Y93.89 Activity, other specified; Y92.89 Other specified places as the place of occurrence of the external cause; Y99.8 Other external cause status
CPT/HCPCS: 96372; 99283; J1885

== ENCOUNTER 2018-09-06 03:22 | Emergency (ER) | payer MEDICAID ==
[~2018-09-06] VITALS: Ht 160 cm; Wt 90.6 kg
--- NOTE | 2018-09-06 03:33 | NUR ---
CHELSI RIVERA IN TO [facility]
[2018-09-06] MEDS ORDERED: KETOROLAC 30 MG/1 ML ONE (03:40)
--- NOTE | 2018-09-06 03:48 | NUR ---
PT. MEDICATED PER SEP.
[2018-09-06] MEDS ORDERED: KETOROLAC 30 MG/1 ML IM ONE (04:00)
[2018-09-06 04:20] VITALS: BP 110/83
== END 2018-09-06 04:21 | disposition home or self-care (01) ==
LOC: ED 03:59
DX: G43.909 Migraine, unspecified, not intractable, without status migrainosus (principal); A08.4 Viral intestinal infection, unspecified
CPT/HCPCS: 96372; 99283; J1885

== ENCOUNTER 2018-09-11 13:00 | Emergency (ER) | payer MEDICAID ==
[~2018-09-11] VITALS: Ht 167.6 cm; Wt 87.3 kg
--- NOTE | 2018-09-11 13:32 | NUR ---
PT INTIALLY ON PHONE AND DID NOT WANT TO BE TRIAGED. PTSAID IF WE COULD WAIT FOR CALL TO BE COMPLETED. PT CALLED AT [phone] AND NO ANSWER AT THIS TIME.
--- NOTE | 2018-09-11 13:50 | NUR ---
WITH PD IN LOBBY
--- NOTE | 2018-09-11 16:41 | NUR ---
PT TO ROOM WITH FRIEND. PT PACING, APPEARS ANXIOS. YELLING, STATES NO ONE BELIEVES ME. REFUSING URINE SAMPLE AT THIS TIME.
--- NOTE | 2018-09-11 17:24 | NUR ---
TRANSPORT TECHNICIAN AND MD TO BEDSIDE. PT PLACED ON LEGAL HOLD. SECURITY TO BEDSIDE.
[2018-09-11] MEDS ORDERED: ZIPRASIDONE 20 MG INJ IM ONE ×2 (17:26→17:30)
[2018-09-11 17:35] LABS: AMPHETAMINE SCREEN, URINE Positive (Negative); BARBITURATE SCREEN, URINE Negative (Negative); BENZODIAZEPINE SCREEN, URINE Negative (Negative); CANNABINOID SCREEN, URINE Negative (Negative); COCAINE SCREEN, URINE Negative (Negative); METHADONE SCREEN, URINE Negative (Negative); OPIATE SCREEN, URINE Negative (Negative)
--- NOTE | 2018-09-11 17:40 | NUR ---
PT MEDICATED PER ORDER. ALL PT BELONIGNS REMOVED. ROOM SECURED, SITTER TO ROOM TO ASSIST. PT REMIANS PARANOID AND DELUSIONS, STATING, "THERE'S A DOG OVER THERE. YOU'RE GOING TO RELEASE IT. YOU'RE GONNA HURT ME."
--- NOTE | 2018-09-11 17:41 | NUR ---
1 BAG OF PT BELONGINGS TO ED SAFE KEEPING. CLOTHES AND CELLPHONE, LABELED.
[2018-09-11 18:25] LABS: ALANINE AMINOTRANSFERASE 27 U/L (12-78); ALBUMIN 4.8 g/dL (3.4-5.0); ANION GAP 11 mmol/L (5-15); BASOPHILS # (AUTO) 0.03 x10^3/uL (0-0.1); BASOPHILS % (AUTO) 0 % (0-1); CALCIUM 8.9 mg/dL (8.5-10.1); CHLORIDE 110 mmol/L (98-107); EOSINOPHILS % (AUTO) 0 % (1-7); LYMPHOCYTES # (AUTO) 1.76 x10^3/uL (1-3.4); LYMPHOCYTES % (AUTO) 14 % (22-44); MD NO; MEAN CORPUSCULAR HEMOGLOBIN 30.7 pg (27.0-34.8); MEAN CORPUSCULAR HGB CONC 34.3 g/dL (32.4-35.8); MEAN CORPUSCULAR VOLUME 89.5 fL (80-100); MEAN PLATELET VOLUME 7.2 fL (7.4-10.4); MONOCYTES # (AUTO) 0.44 x10^3/uL (0.2-0.8); MONOCYTES % (AUTO) 3 % (2-9); NEUTROPHILS # (AUTO) 10.58 x10^3/uL (1.8-6.8); NEUTROPHILS % (AUTO) 83 % (42-75); PLATELET COUNT 375 x10^3/uL (130-400); RED BLOOD COUNT 5.14 x10^6/uL (3.82-5.3); RED CELL DISTRIBUTION WIDTH 12.7 % (9.6-15.2); SALICYLATE LEVEL 3.4 mg/dL (2.8-20.0)
[2018-09-11 18:28] LABS: ALKALINE PHOSPHATASE 76 U/L (45-117); BILIRUBIN,TOTAL 1.1 mg/dL (0.2-1.0); CREATININE 0.93 mg/dL (0.55-1.02); TOTAL PROTEIN 8.6 g/dL (6.4-8.2)
[2018-09-11 18:32] LABS: ACETAMINOPHEN < 2 mcg/mL (10-30)
--- NOTE | 2018-09-11 18:48 | NUR ---
PT HANDOFF REPORT TO EMILIANO JOHNSON. PT MOVED TO ROOM 40. Addendum: 09/11/18 at 1849 by INGE PT HANDOFF REPORT TO EMILIANO MCKEE. PT MOVED TO ROOM 40.
--- NOTE | 2018-09-11 19:09 | NUR ---
REPORT RECEIVED FROM RYLEE CUMMINGS.
--- NOTE | 2018-09-11 19:50 | NUR ---
pt sleeping in gurney. resps even and unlabored.
--- NOTE | 2018-09-11 21:06 | NUR ---
PT SLEEPING IN [place]. RESPS EVEN AND UNLABORED. NO VISITORS UNTILL PT AWAKE.
--- NOTE | 2018-09-11 23:26 | NUR ---
TP RN: [facility] CONSULT REQUESTED. PACKET FAXED TO [facility].
--- NOTE | 2018-09-11 23:31 | NUR ---
TP RN: [facility] STAFF STATES THAT STAFF WILL ARRIVE IN AM FOR EVAL OF PT
--- NOTE | 2018-09-11 23:57 | NUR ---
pt sleeping in [facility]. resps even and unlabored. sitter monitoring from hallway for safety. room remains secure.
--- NOTE | 2018-09-12 00:47 | NUR ---
pt sleeping in [facility]. resps even and unlabored. sitter monitoring from hallway for safety. room remains secure.
--- NOTE | 2018-09-12 01:16 | NUR ---
pt sleeping in [facility]. resps even and unlabored. sitter monitoring from hallway for safety. room remains secure.
--- NOTE | 2018-09-12 02:14 | NUR ---
pt sleeping in [facility]. resps even and unlabored. sitter monitoring from hallway for safety. room remains secure.
--- NOTE | 2018-09-12 03:48 | NUR ---
PT IS AWAKE AT THIS TIME. PT PROVIDED WATER.
--- NOTE | 2018-09-12 04:28 | NUR ---
pt sleeping in [facility]. resps even and unlabored. sitter monitoring from hallway for safety. room remains secure.
--- NOTE | 2018-09-12 07:03 | NUR ---
received report from Anaya. pt laying on gurney sleeping calmly, NAD with equal chest rise/fall, pt remains in safe environment, sitter full in view.
--- NOTE | 2018-09-12 07:40 | NUR ---
[facility] at for consult
--- NOTE | 2018-09-12 07:59 | NUR ---
pt laying on gurney with eyes closed, calm & cooperative, responds approp to staff, NAD, comfort measures provided, pt remains in safe environment, sitter in view.
[2018-09-12 08:22] VITALS: BP 98/55
--- NOTE | 2018-09-12 08:23 | NUR ---
breakfast tray given
--- NOTE | 2018-09-12 09:04 | NUR ---
report given to Meghana
--- NOTE | 2018-09-12 09:10 | NUR ---
REPORT FROM AGUSTINA CUMMINGS, PT SLEEPING, SITTER AT DOORWAY.
--- NOTE | 2018-09-12 09:42 | NUR ---
Chart faxed to [facility], [facility], [facility], [facility] and [facility] at this time.
--- NOTE | 2018-09-12 10:06 | NUR ---
Maria M aleman in EDM - 09/12/18 at 1008 by JOHANA transfer of [facility] pt declined by [facility] Transfer Center Amy) & [facility] Nicki).
--- NOTE | 2018-09-12 10:08 | NUR ---
previous note charted in error on wrong pt.
--- NOTE | 2018-09-12 10:49 | NUR ---
ACCEPTED TO [facility], DR CORRAL, RN INGRID
--- NOTE | 2018-09-12 10:58 | NUR ---
REPORT TO INGRID HENRIQUEZ AT [facility]. THROUGHPUT RN INFORMED.
--- NOTE | 2018-09-12 11:51 | NUR ---
TRANSFER PAPERWORK COMPLETED, AWAITING [facility].
[2018-09-12] MEDS ORDERED: DOCUSATE 100 MG CAPSULE PO PRN (12:00)
[2018-09-12] MEDS ORDERED: TEMPLATE NON-FORMULARY MED. (Levetiracetam** (Keppra**) 1,000 MG) PO SCH (12:00)
[2018-09-12] MEDS ORDERED: POTASSIUM CHLORIDE 20 MEQ TAB.ER.PRT PO ONE (12:00)
[2018-09-12] MEDS ORDERED: QUETIAPINE 25MG TABLET PO PRN (12:00)
[2018-09-12] MEDS ORDERED: ONDANSETRON ODT 4 MG PO PRN (12:00)
[2018-09-12] MEDS ORDERED: ACETAMINOPHEN 325 MG TABLET PO PRN (12:00)
[2018-09-12] MEDS ORDERED: LORazepam 2 MG/ML, 1ML IVPush PRN (12:00)
== END 2018-09-12 12:57 ==
LOC: ED 18:23 → EDIP 09-12 09:54 → UNDOADMOB 09-12 09:54
DX: F29 Unspecified psychosis not due to a substance or known physiological condition (principal); F15.20 Other stimulant dependence, uncomplicated; F17.200 Nicotine dependence, unspecified, uncomplicated; E11.65 Type 2 diabetes mellitus with hyperglycemia; G40.909 Epilepsy, unspecified, not intractable, without status epilepticus; G43.909 Migraine, unspecified, not intractable, without status migrainosus; J44.9 Chronic obstructive pulmonary disease, unspecified; Z90.89 Acquired absence of other organs; Z90.49 Acquired absence of other specified parts of digestive tract
CPT/HCPCS: 36415; 70450; 80053; 80307; 80329; 85025; 96372; 99285; J3486; 99284; G0480

== ENCOUNTER 2018-09-25 03:46 | Emergency (ER) | payer MEDICAID ==
[~2018-09-25] VITALS: Ht 160 cm; Wt 85.0 kg
--- NOTE | 2018-09-25 04:00 | NUR ---
BIBA. PT C/O CP/SOB SINCE 3AM. PT HAS BEEN SICK(SORE THROAT/COUGH) FOR A FEW DAYS. HX OF COPD/SEIZURE. NSR ON PSYCHOLOGY PROFESSOR RATE 70'S AT THIS TIME. SPO2 >93% WITH RA. PT'S AOX4. RESPS EVEN AND UNLABORED. ALL MONITORS IN PLACE. CALL LIGHT WITHIN REACH. EDMD AT BEDSIDE TO ASSESS.
[2018-09-25] MEDS ORDERED: LORazepam 1MG TABLET ONE (04:17)
--- NOTE | 2018-09-25 04:24 | NUR ---
PT MEDICATED PER EMAR. PT TOLERATED WELL.
[2018-09-25] MEDS ORDERED: LORazepam 1MG TABLET PO ONE (04:30)
--- NOTE | 2018-09-25 04:31 | NUR ---
PT WAS NOT ABLE TO PROVIDE URINE SAMPLE AT THIS TIME.
[2018-09-25 04:56] LABS: BASOPHILS # (AUTO) 0.05 x10^3/uL (0-0.1); BASOPHILS % (AUTO) 1 % (0-1); EOSINOPHILS # (AUTO) 0.03 x10^3/uL (0-0.4); EOSINOPHILS % (AUTO) 0 % (1-7); LYMPHOCYTES % (AUTO) 37 % (22-44); MD NO; MEAN CORPUSCULAR HEMOGLOBIN 30.3 pg (27.0-34.8); MEAN CORPUSCULAR HGB CONC 33.9 g/dL (32.4-35.8); MEAN CORPUSCULAR VOLUME 89.3 fL (80-100); MEAN PLATELET VOLUME 7.3 fL (7.4-10.4); MONOCYTES % (AUTO) 6 % (2-9); NEUTROPHILS # (AUTO) 5.53 x10^3/uL (1.8-6.8); NEUTROPHILS % (AUTO) 56 % (42-75); PLATELET COUNT 325 x10^3/uL (130-400); RED BLOOD COUNT 4.79 x10^6/uL (3.82-5.3); RED CELL DISTRIBUTION WIDTH 12.4 % (9.6-15.2)
[2018-09-25 05:04] LABS: ALANINE AMINOTRANSFERASE 36 U/L (12-78); ANION GAP 9 mmol/L (5-15); CALCIUM 8.6 mg/dL (8.5-10.1); CHLORIDE 107 mmol/L (98-107); CREATININE 0.67 mg/dL (0.55-1.02)
[2018-09-25 05:14] LABS: ALKALINE PHOSPHATASE 65 U/L (45-117); BILIRUBIN,TOTAL 0.8 mg/dL (0.2-1.0); THYROID STIMULATING HORMONE 0.795 mIU/L (0.358-3.740); TOTAL PROTEIN 7.1 g/dL (6.4-8.2)
--- NOTE | 2018-09-25 05:23 | NUR ---
XRAY IN THE ROOM.
[2018-09-25] MEDS ORDERED: POTASSIUM CHLORIDE 20 MEQ TAB.ER.PRT PO ONE (05:30)
[2018-09-25] MEDS ORDERED: POTASSIUM CHLORIDE 20 MEQ TAB.ER.PRT ONE (05:30)
--- NOTE | 2018-09-25 05:35 | NUR ---
PT MEDICATED PER EMAR. PT TOLERATED WELL. PT'S AOX4. RESPS EVEN AND UNLABORED.
--- NOTE | 2018-09-25 05:36 | NUR ---
EDMD AT BEDSIDE TO EXPLAIN ALL RESULTS AT THIS TIME.
[2018-09-25 06:10] VITALS: BP 108/61
--- NOTE | 2018-09-25 06:11 | NUR ---
PT GIVEN DC INSTRUCTIONS AND SCRIPT. PT EDUCATED REGARDING DC MEDICATION. PT AMB TO DC WITH STEADY GAIT. PT'S AOX4. RESPS EVEN AND UNLABORED. NO ACUTE DISTRESS AT DC.
== END 2018-09-25 06:12 | disposition home or self-care (01) ==
LOC: ED 05:14
DX: E87.6 Hypokalemia (principal); I10 Essential (primary) hypertension; E11.9 Type 2 diabetes mellitus without complications; J44.9 Chronic obstructive pulmonary disease, unspecified; Z86.718 Personal history of other venous thrombosis and embolism; F17.200 Nicotine dependence, unspecified, uncomplicated; Z90.89 Acquired absence of other organs; Z90.49 Acquired absence of other specified parts of digestive tract
CPT/HCPCS: 36415; 71045; 80053; 80307; 83735; 84443; 85025; 93005; 99284

== ENCOUNTER 2018-09-26 03:13 | Emergency (ER) | payer MEDICAID ==
[~2018-09-26] VITALS: Ht 165.1 cm; Wt 80.9 kg
--- NOTE | 2018-09-26 03:19 | NUR ---
ALETA DEL TORO FOR C/O MIGRANE CASTANO; LIGHT SENSITIVE. HX OF SAME. CHELSI LENNON IN TO EVAL PT. AND DISCUSS POC. CONTINUOUS PULSE OX AND B/P MONITORS IN [place]. NO NEURO DEFICITS NOTED. PT. AMBULATORY WITH STEADY GAIT. CALL LIGHT IN REACH.
[2018-09-26] MEDS ORDERED: KETOROLAC 30 MG/1 ML ONE ×2 (03:29→04:23)
[2018-09-26] MEDS ORDERED: PROCHLORPERAZINE 5 MG/ML, 2ML ONE (03:29)
[2018-09-26] MEDS ORDERED: DIPHENHYDRAMINE 25 MG CAPSULE ONE (03:29)
[2018-09-26] MEDS ORDERED: KETOROLAC 30 MG/1 ML IM ONE ×2 (03:30→04:30)
[2018-09-26] MEDS ORDERED: PROCHLORPERAZINE 5 MG/ML, 2ML IM ONE (03:30)
[2018-09-26] MEDS ORDERED: DIPHENHYDRAMINE 25 MG CAPSULE PO ONE (03:30)
--- NOTE | 2018-09-26 03:37 | NUR ---
PT. MEDICATED PER MAR. PROVIDED WITH 2ND WARM BLANKET PER REQUEST. DENIES OTHER NEEDS. ALL SAFETY MEASURES OBSERVED.
[2018-09-26] MEDS ORDERED: METOCLOPRAMIDE 5 MG/ML, 2ML ONE (04:24)
--- NOTE | 2018-09-26 04:29 | NUR ---
PT. MEDICATED PER MAR FOR CONTINUED 12/17 CASTANO. SAFETY MEASURES MAINTAINED. VS UPDATED.
[2018-09-26] MEDS ORDERED: METOCLOPRAMIDE 5 MG/ML, 2ML IM ONE (04:30)
[2018-09-26 05:21] VITALS: BP 120/75
== END 2018-09-26 05:23 | disposition home or self-care (01) ==
LOC: ED 05:20
DX: G43.909 Migraine, unspecified, not intractable, without status migrainosus (principal); Z72.9 Problem related to lifestyle, unspecified; J44.9 Chronic obstructive pulmonary disease, unspecified; E11.9 Type 2 diabetes mellitus without complications
CPT/HCPCS: 96372; 99283; J0780; J1885; J2765; Q0163

== ENCOUNTER 2018-12-10 01:31 | Emergency (ER) | payer MEDICAID ==
[~2018-12-10] VITALS: Ht 160 cm; Wt 75.0 kg
[2018-12-10 01:34] VITALS: BP 111/68
--- NOTE | 2018-12-10 01:47 | NUR ---
PT PRESENTED WITH C/O L ANKLE PAIN/SWELLING SP LAC TO L HEEL X MONDAY. MONITORS APPLIED, SIDERAILS UP X2, CALL LIGHT WITHIN REACH. AWAITING ERP EVAL AND ORDERS
[2018-12-10] MEDS ORDERED: WARF-36 PO (01:54)
[2018-12-10] MEDS ORDERED: HYDR20TA23 PO ×2 (01:57)
--- NOTE | 2018-12-10 02:51 | NUR ---
PT RESTING IN [facility] AT THIS TIME;
[2018-12-10] MEDS ORDERED: ACETAMINOPHEN 500 MG TABLET PO ONE (03:00)
[2018-12-10] MEDS ORDERED: CLINDAMYCIN 300 MG CAPSULE PO ONE (03:00)
[2018-12-10] MEDS ORDERED: ACETAMINOPHEN 500 MG TABLET ONE (03:09)
[2018-12-10] MEDS ORDERED: CLINDAMYCIN 300 MG CAPSULE ONE (03:09)
--- NOTE | 2018-12-10 03:12 | NUR ---
PT MEDICATED PER SEP. PT D/C WITH D/C SUMMARY AND SCRIPTS. ALL QUESTIONS ANSWERED. PT AMBULATES TO REGISTRATION DESK FOR STEADY GAIT FOR D/C HOME. PT DENIES ANY OTHER NEEDS PERTAINING TO THIS VISIT. PT ACCOMPANIED BY FRIEND FOR D/C HOME.
== END 2018-12-10 03:15 | disposition home or self-care (01) ==
LOC: ED 02:55
DX: L03.116 Cellulitis of left lower limb (principal); J44.9 Chronic obstructive pulmonary disease, unspecified; I10 Essential (primary) hypertension; E11.9 Type 2 diabetes mellitus without complications; Z90.49 Acquired absence of other specified parts of digestive tract; Z90.89 Acquired absence of other organs
CPT/HCPCS: 99283

== ENCOUNTER 2019-01-05 03:41 | Emergency (ER) | payer MEDICAID ==
[~2019-01-05] VITALS: Ht 160 cm; Wt 75.6 kg
[~2019-01-05 03:41] MED LIST changes: +HYDR20TA23 PO
[2019-01-05 03:55] VITALS: BP 144/87
--- NOTE | 2019-01-05 04:20 | NUR ---
PT C/O SOB [id number] AGO. STATES HX OF COPD AND ASTHMA. HER INHALERS WERE STOLEN YESTERDAY. PT ARRIVED VIA EMS, RECIEVED NEBULIZER EN ROUTE. MONITORS APPLIED, SIDERAILS UP X2, CALL LIGHT WITHIN REACH
== END 2019-01-05 05:06 | disposition home or self-care (01) ==
LOC: ED 04:50
DX: J44.9 Chronic obstructive pulmonary disease, unspecified (principal); E11.9 Type 2 diabetes mellitus without complications; I10 Essential (primary) hypertension; Z72.9 Problem related to lifestyle, unspecified
CPT/HCPCS: 93005; 99283

== ENCOUNTER 2019-01-15 18:59 | Emergency (ER) | payer MEDICAID ==
[~2019-01-15] VITALS: Ht 160 cm; Wt 68.0 kg
--- NOTE | 2019-01-15 19:21 | NUR ---
PT IN HOSPTIAL GOWN. SEIZURE PRECAUTIONS PLACED ON BED. PT ON CARDIAC AND VITALS MONITORS.
[2019-01-15] MEDS ORDERED: SODIUM CHLORIDE FLUSH 10ML SYR IVF ONE (19:30)
[2019-01-15] MEDS ORDERED: ACETAMINOPHEN 325 MG TABLET PO ONE (19:30)
[2019-01-15] MEDS ORDERED: ACETAMINOPHEN 325 MG TABLET ONE (19:49)
[2019-01-15] MEDS ORDERED: LORazepam 2 MG/ML, 1ML IVPush ONE (20:00)
--- NOTE | 2019-01-15 20:17 | NUR ---
unable tostarted iv after 2 pokes. will find another staff member toassist with iv placement.
[2019-01-15 20:25] LABS: BASOPHILS # (AUTO) 0.06 x10^3/uL (0-0.1); BASOPHILS % (AUTO) 0 % (0-1); EOSINOPHILS # (AUTO) 0.06 x10^3/uL (0-0.4); EOSINOPHILS % (AUTO) 0 % (1-7); LYMPHOCYTES # (AUTO) 2.93 x10^3/uL (1-3.4); LYMPHOCYTES % (AUTO) 22 % (22-44); MD NO; MEAN CORPUSCULAR HEMOGLOBIN 31.1 pg (27.0-34.8); MEAN CORPUSCULAR HGB CONC 33.3 g/dL (32.4-35.8); MEAN CORPUSCULAR VOLUME 93.5 fL (80-100); MEAN PLATELET VOLUME 7.4 fL (7.4-10.4); MONOCYTES # (AUTO) 0.64 x10^3/uL (0.2-0.8); MONOCYTES % (AUTO) 5 % (2-9); NEUTROPHILS # (AUTO) 9.95 x10^3/uL (1.8-6.8); NEUTROPHILS % (AUTO) 73 % (42-75); PLATELET COUNT 353 x10^3/uL (130-400); RED BLOOD COUNT 4.69 x10^6/uL (3.82-5.3)
[2019-01-15 20:35] LABS: ALANINE AMINOTRANSFERASE 10 U/L (12-78); ALBUMIN 2.7 g/dL (3.4-5.0); ANION GAP 7 mmol/L (5-15); CALCIUM 8.8 mg/dL (8.5-10.1); CHLORIDE 109 mmol/L (98-107); CREATININE 0.68 mg/dL (0.55-1.02)
[2019-01-15 20:38] LABS: ALKALINE PHOSPHATASE 67 U/L (45-117); BILIRUBIN,TOTAL 0.3 mg/dL (0.2-1.0); TOTAL PROTEIN 6.3 g/dL (6.4-8.2)
[2019-01-15] MEDS ORDERED: LORazepam 2 MG/ML, 1ML ONE (20:45)
--- NOTE | 2019-01-15 20:52 | NUR ---
iv started with US. PT MEDICATED PER EMAR FOR SEIZURE. PT HAS NOT HAD ANY SEIZURE ACTIVITY SINCE ARRIVING TO ER. WILL CONTINUE TO MONITOR.
--- NOTE | 2019-01-15 20:55 | NUR ---
PT REFUSED FINGERSTICK. DIDN'T WANT TO GET POKED ANY MORE.
[2019-01-15 22:11] VITALS: BP 100/47
== END 2019-01-15 22:16 | disposition home or self-care (01) ==
LOC: ED 22:05
DX: G40.409 Other generalized epilepsy and epileptic syndromes, not intractable, without status epilepticus (principal); J45.909 Unspecified asthma, uncomplicated; J44.9 Chronic obstructive pulmonary disease, unspecified; Z86.718 Personal history of other venous thrombosis and embolism
CPT/HCPCS: 36415; 80053; 85025; 93005; 96374; 99284; J2060

== ENCOUNTER 2019-01-30 08:52 | Emergency (ER) | payer MEDICAID ==
[~2019-01-30] VITALS: Ht 160 cm; Wt 70.8 kg
[2019-01-30 09:00] VITALS: BP 99/58
== END 2019-01-30 09:44 | disposition home or self-care (01) ==
LOC: ED 09:38
DX: Z00.00 Encounter for general adult medical examination without abnormal findings (principal)
CPT/HCPCS: 99281

== ENCOUNTER 2019-02-05 19:33 | Emergency (ER) | payer MEDICAID ==
[~2019-02-05] VITALS: Ht 160 cm; Wt 72.0 kg
[~2019-02-05 19:33] MED LIST changes: +LEVE10007 PO
--- NOTE | 2019-02-05 19:44 | NUR ---
BIB [facility] FROM DROP IN [facility] PER STAFF PT HAD SEIZURE X5, ON EMS ARRIVAL PT POST ICTAL, TONIC CLONIC MVMT. PT H/X EPILEPSY. B/P-137/75, HR-86, SPO2-89%, EMS PROVIDED BLOWBY SPO2-97%, FSBS-111. EMS FOUND NEEDLES AND DRUGS IN PT'S PURSE. PT RESTING ON GURNEY, MONITORS APPLIED, SIDERAILS UP X2, SEIZURE PADS APPLIED TO GURNEY, CALL LIGHT WITHIN REACH. PT STATED THOSE ARE NOT DRUGS THAT IS TABLE SALT IN MY PURSE. ERP AT BEDSIDE FOR EVAL
[2019-02-05 20:07] LABS: BASOPHILS # (AUTO) 0.06 x10^3/uL (0-0.1); BASOPHILS % (AUTO) 1 % (0-1); EOSINOPHILS # (AUTO) 0.07 x10^3/uL (0-0.4); EOSINOPHILS % (AUTO) 1 % (1-7); LYMPHOCYTES # (AUTO) 4.29 x10^3/uL (1-3.4); LYMPHOCYTES % (AUTO) 42 % (22-44); MD NO; MEAN CORPUSCULAR HEMOGLOBIN 30.9 pg (27.0-34.8); MEAN CORPUSCULAR HGB CONC 33.4 g/dL (32.4-35.8); MEAN CORPUSCULAR VOLUME 92.7 fL (80-100); MEAN PLATELET VOLUME 7.4 fL (7.4-10.4); MONOCYTES # (AUTO) 0.64 x10^3/uL (0.2-0.8); MONOCYTES % (AUTO) 6 % (2-9); NEUTROPHILS # (AUTO) 5.13 x10^3/uL (1.8-6.8); NEUTROPHILS % (AUTO) 50 % (42-75); PLATELET COUNT 335 x10^3/uL (130-400); RED BLOOD COUNT 4.76 x10^6/uL (3.82-5.3); RED CELL DISTRIBUTION WIDTH 12.5 % (9.6-15.2)
[2019-02-05 20:18] LABS: ALANINE AMINOTRANSFERASE 21 U/L (12-78); ALBUMIN 3.7 g/dL (3.4-5.0); ANION GAP 9 mmol/L (5-15); CALCIUM 8.9 mg/dL (8.5-10.1); CHLORIDE 111 mmol/L (98-107); CREATININE 0.94 mg/dL (0.55-1.02)
--- NOTE | 2019-02-05 20:20 | NUR ---
URINE SAMPLE SENT
[2019-02-05 20:23] LABS: ALKALINE PHOSPHATASE 71 U/L (45-117); BILIRUBIN,TOTAL 0.2 mg/dL (0.2-1.0); TOTAL PROTEIN 7.1 g/dL (6.4-8.2)
[2019-02-05 20:46] LABS: AMPHETAMINE SCREEN, URINE Positive (Negative); BARBITURATE SCREEN, URINE Negative (Negative); BENZODIAZEPINE SCREEN, URINE Negative (Negative); CANNABINOID SCREEN, URINE Negative (Negative); COCAINE SCREEN, URINE Negative (Negative); METHADONE SCREEN, URINE Negative (Negative); OPIATE SCREEN, URINE Negative (Negative)
[2019-02-05 21:04] VITALS: BP 102/57
--- NOTE | 2019-02-05 21:04 | NUR ---
pt resting with eyes closed, nad, monitors in place, call light within reach
[2019-02-25] MEDS ORDERED: QUET50TA PO (18:00)
== END 2019-02-05 21:16 | disposition home or self-care (01) ==
LOC: ED 20:50
DX: G40.319 Generalized idiopathic epilepsy and epileptic syndromes, intractable, without status epilepticus (principal); E11.9 Type 2 diabetes mellitus without complications; I10 Essential (primary) hypertension; J44.9 Chronic obstructive pulmonary disease, unspecified; G43.909 Migraine, unspecified, not intractable, without status migrainosus; Z90.49 Acquired absence of other specified parts of digestive tract; Z86.718 Personal history of other venous thrombosis and embolism; F17.200 Nicotine dependence, unspecified, uncomplicated
CPT/HCPCS: 36415; 80053; 80307; 84703; 85025; 93005; 99284

== ENCOUNTER 2019-02-25 17:46 | Emergency (ER) | payer MEDICAID ==
[~2019-02-25] VITALS: Ht 160 cm; Wt 70.0 kg
[2019-02-25 20:29] VITALS: BP 102/71
== END 2019-02-25 20:31 | disposition home or self-care (01) ==
LOC: ED 20:05
DX: R55 Syncope and collapse (principal); R51 Headache; E11.9 Type 2 diabetes mellitus without complications; J44.9 Chronic obstructive pulmonary disease, unspecified; I10 Essential (primary) hypertension; J45.909 Unspecified asthma, uncomplicated; Z90.89 Acquired absence of other organs; Z90.49 Acquired absence of other specified parts of digestive tract
CPT/HCPCS: 36415; 71045; 80048; 80307; 82040; 84703; 85025; 85610; 93005; 96361; 96374; 99284; J2405; J7030

== ENCOUNTER 2019-08-06 11:14 | Emergency (ER) | payer MEDICAID, OTHER ==
[~2019-08-06] VITALS: Ht 160 cm; Wt 74.5 kg
[~2019-08-06 11:14] MED LIST changes: -ACET-1757 PO; +ACET-2065 PO; +AZIT500T10 PO; -AZIT500T5 PO; +QUET50TA PO
[2019-08-06 12:00] VITALS: BP 148/95
[2019-08-06] MEDS ORDERED: IBUPROFEN 200 MG TABLET PO ONE (12:00)
[2019-08-06] MEDS ORDERED: IBUPROFEN 200 MG TABLET ONE (12:02)
[2019-08-06 12:19] LABS: BASOPHILS # (AUTO) 0.07 x10^3/uL (0-0.1); BASOPHILS % (AUTO) 1 % (0-1); EOSINOPHILS # (AUTO) 0.04 x10^3/uL (0-0.4); EOSINOPHILS % (AUTO) 0 % (1-7); LYMPHOCYTES # (AUTO) 3.74 x10^3/uL (1-3.4); LYMPHOCYTES % (AUTO) 30 % (22-44); MD NO; MEAN CORPUSCULAR HGB CONC 33.8 g/dL (32.4-35.8); MEAN CORPUSCULAR VOLUME 91.6 fL (80-100); MEAN PLATELET VOLUME 7.7 fL (7.4-10.4); MONOCYTES % (AUTO) 4 % (2-9); NEUTROPHILS # (AUTO) 8.18 x10^3/uL (1.8-6.8); NEUTROPHILS % (AUTO) 65 % (42-75); PLATELET COUNT 321 x10^3/uL (130-400); RED BLOOD COUNT 4.85 x10^6/uL (3.82-5.3); RED CELL DISTRIBUTION WIDTH 12.9 % (9.6-15.2)
[2019-08-06 12:30] LABS: ALBUMIN 3.8 g/dL (3.4-5.0); CHLORIDE 108 mmol/L (98-107)
[2019-08-06 12:32] LABS: ANION GAP 5 mmol/L (5-15); CALCIUM 9.1 mg/dL (8.5-10.1); CREATININE 0.79 mg/dL (0.55-1.02)
--- NOTE | 2019-08-06 13:15 | NUR ---
RECEIVED REPORT FROM LISA. PT UPRIGHT ON GURNEY AWAKE & COMFORTABLE, RESPONDS APPROP TO STAFF, NAD, NO NEEDS AT THIS TIME, COMFORT MEASURES PROVIDED, [facility] AT BS, CALL LIGHT WITHIN REACH, AWAITING DC INSTRUCTIONS.
--- NOTE | 2019-08-06 13:34 | NUR ---
Patient/Caregiver given discharge instructions and they have confirmed that they understand the instructions. Patient ambulatory with steady gait.
== END 2019-08-06 13:36 | disposition home or self-care (01) ==
LOC: ED 13:00
DX: M79.661 Pain in right lower leg (principal); M25.561 Pain in right knee; D72.829 Elevated white blood cell count, unspecified; G43.909 Migraine, unspecified, not intractable, without status migrainosus; G40.909 Epilepsy, unspecified, not intractable, without status epilepticus; J44.9 Chronic obstructive pulmonary disease, unspecified; E11.65 Type 2 diabetes mellitus with hyperglycemia; E87.6 Hypokalemia; E16.2 Hypoglycemia, unspecified; Z86.718 Personal history of other venous thrombosis and embolism
CPT/HCPCS: 36415; 80048; 82040; 85025; 99284

== ENCOUNTER 2019-12-01 10:08 | Emergency (ER) | payer MEDICAID, OTHER ==
[~2019-12-01] VITALS: Ht 162.6 cm; Wt 71.0 kg
[~2019-12-01 10:08] MED LIST changes: -WARF1TAB PO; +WARF1TAB2 PO; -WARF5TAB PO; +WARF5TAB2 PO
--- NOTE | 2019-12-01 10:14 | NUR ---
ekg in triage
[2019-12-01 10:44] LABS: BASOPHILS # (AUTO) 0.03 x10^3/uL (0-0.1); BASOPHILS % (AUTO) 0 % (0-1); EOSINOPHILS # (AUTO) 0.05 x10^3/uL (0-0.4); EOSINOPHILS % (AUTO) 0 % (1-7); LYMPHOCYTES # (AUTO) 4.11 x10^3/uL (1-3.4); LYMPHOCYTES % (AUTO) 33 % (22-44); MD NO; MEAN CORPUSCULAR HEMOGLOBIN 30.9 pg (27.0-34.8); MEAN CORPUSCULAR HGB CONC 33.5 g/dL (32.4-35.8); MEAN CORPUSCULAR VOLUME 92.4 fL (80-100); MEAN PLATELET VOLUME 7.3 fL (7.4-10.4); MONOCYTES # (AUTO) 0.58 x10^3/uL (0.2-0.8); MONOCYTES % (AUTO) 5 % (2-9); NEUTROPHILS # (AUTO) 7.81 x10^3/uL (1.8-6.8); NEUTROPHILS % (AUTO) 62 % (42-75); PLATELET COUNT 402 x10^3/uL (130-400); RED CELL DISTRIBUTION WIDTH 12.9 % (9.6-15.2)
--- NOTE | 2019-12-01 10:45 | NUR ---
PT REPORTS HAVING CHEST PAIN FOR MONTHS WORSE OVER THE PAST 5 DAYS, WORSE SOB WHEN LYING DOWN. CENTERAL L SIDE PRESSURE 6/10. PT IN ROOM IN GOWN WITH CONT COMMERCIAL COORDINATOR, SPO2, BPQ 30 MIN, SIDE RAILS UP X2, CALL LGHT IN REACH. MD SHAY IN ROOM. PT AGREES TO POC.
[2019-12-01 10:54] LABS: ALANINE AMINOTRANSFERASE 22 U/L (12-78); ALBUMIN 3.7 g/dL (3.4-5.0); ANION GAP 5 mmol/L (5-15); CALCIUM 9.1 mg/dL (8.5-10.1); CHLORIDE 106 mmol/L (98-107); CREATININE 0.81 mg/dL (0.55-1.02)
[2019-12-01 10:55] LABS: D-DIMER 0.25 ug/mlFEU (0.00-0.52); INTERNATIONAL NORMALIZED RATIO 0.89 (0.93-1.1); PROTHROMBIN TIME 9.4 Seconds (9.6-11.5)
[2019-12-01 10:58] LABS: ALKALINE PHOSPHATASE 75 U/L (45-117); BILIRUBIN,TOTAL 0.2 mg/dL (0.2-1.0); TOTAL PROTEIN 7.5 g/dL (6.4-8.2); TROPONIN I < 0.015 ng/mL (0.000-0.045)
--- NOTE | 2019-12-01 12:13 | NUR ---
BREAK RN: PT LAYING ON GURNEY, NO ACUTE DISTRESS NOTED. SR PER MONITOR. PT AWARE, TESTING HAS RESULTED. WAITING FOR MD RECHECK. NO NEEDS EXPRESSED AT THIS TIME.
--- NOTE | 2019-12-01 12:35 | NUR ---
REPORT TO DELFINA CUMMINGS
--- NOTE | 2019-12-01 13:39 | NUR ---
Duplex in room, pt calm
[2019-12-01 14:52] VITALS: BP 124/54
== END 2019-12-01 14:54 | disposition home or self-care (01) ==
LOC: ED 14:50
DX: M94.0 Chondrocostal junction syndrome [Tietze] (principal); R07.89 Other chest pain; R60.0 Localized edema; I10 Essential (primary) hypertension; E11.9 Type 2 diabetes mellitus without complications; J44.9 Chronic obstructive pulmonary disease, unspecified; G43.909 Migraine, unspecified, not intractable, without status migrainosus; F17.200 Nicotine dependence, unspecified, uncomplicated; Z86.718 Personal history of other venous thrombosis and embolism; Z86.711 Personal history of pulmonary embolism; Z90.49 Acquired absence of other specified parts of digestive tract; Z79.01 Long term (current) use of anticoagulants
CPT/HCPCS: 36415; 71045; 80053; 83880; 84484; 84703; 85025; 85379; 85610; 93005; 99285

== ENCOUNTER 2020-10-04 01:24 | Emergency (ER) | payer MEDICAID ==
[~2020-10-04] VITALS: Ht 160 cm; Wt 87.0 kg
[~2020-10-04 01:24] MED LIST changes: +HYDR-1067 PO; -HYDR-3240 PO; -HYDR20TA23 PO; +HYDR20TA24 PO
[2020-10-04] MEDS ORDERED: LORazepam 1MG TABLET PO ONE (01:30)
[2020-10-04] MEDS ORDERED: ZIPRASIDONE 20 MG INJ IM ONE ×2 (01:30→01:38)
[2020-10-04] MEDS ORDERED: LORazepam 1MG TABLET ONE (01:39)
[2020-10-04] MEDS ORDERED: ALBUTEROL/IPRATROPIUM 2.5MG/0.5MG, 3 ML NPPB ONE (02:00)
[2020-10-04 02:26] LABS: BASOPHILS % (AUTO) 1 % (0-1); EOSINOPHILS % (AUTO) 0 % (1-7); LYMPHOCYTES % (AUTO) 29 % (22-44); MEAN CORPUSCULAR HEMOGLOBIN 30.6 pg (27.0-34.8); MEAN CORPUSCULAR HGB CONC 33.7 g/dL (32.4-35.8); MEAN PLATELET VOLUME 7.3 fL (7.4-10.4); MONOCYTES % (AUTO) 4 % (2-9); NEUTROPHILS % (AUTO) 66 % (42-75); PLATELET COUNT 296 x10^3/uL (130-400); RED BLOOD COUNT 4.61 x10^6/uL (3.82-5.3); RED CELL DISTRIBUTION WIDTH 12.9 % (9.6-15.2)
--- NOTE | 2020-10-04 02:26 | NUR ---
PT MOVED TO ROOM 1, CALM AND COOPERATIVE AT THIS TIME. PAVING CONTRACTOR TO BEDSIDE TO DRAW BLOOD AND EKG DONE. PT MEDICATED BY PRIOR RN, SEE EMAR.
[2020-10-04 02:29] LABS: MD NO
[2020-10-04 02:35] LABS: ALANINE AMINOTRANSFERASE 23 U/L (12-78); ALBUMIN 3.4 g/dL (3.4-5.0); ANION GAP 8 mmol/L (5-15); CALCIUM 8.4 mg/dL (8.5-10.1); CHLORIDE 110 mmol/L (98-107); SALICYLATE LEVEL 7.4 mg/dL (2.8-20.0)
[2020-10-04 02:40] LABS: ALKALINE PHOSPHATASE 77 U/L (45-117); BILIRUBIN,TOTAL 0.3 mg/dL (0.2-1.0); TOTAL PROTEIN 6.5 g/dL (6.4-8.2); TROPONIN I < 0.015 ng/mL (0.000-0.045)
[2020-10-04] MEDS ORDERED: ALBUTEROL/IPRATROPIUM 2.5MG/0.5MG, 3 ML ONE (02:40)
[2020-10-04] MEDS ORDERED: POTASSIUM CHLORIDE 20 MEQ TAB.ER.PRT PO ONE (03:00)
--- NOTE | 2020-10-04 03:19 | NUR ---
PT GIVEN DUONEB AND TOLERATED WELL, IN NO ACUTE DISTRESS AT THIS TIME. PT WITH EASY RESPIRATIONS AND GOOD OXYGENATION AND AERATION. ON O2 AND BP MONITOR.
--- NOTE | 2020-10-04 04:47 | NUR ---
EKG done handed to dr garcia.
--- NOTE | 2020-10-04 04:58 | NUR ---
pt remains asleep at this time. maintains airway. good aeration and oxygenation. pt is at 95% o2 sats on RA asleep. tele psych ordered, but waiting for pt to wake up. pt arouses, but goes back to sleep. MD aware.
--- NOTE | 2020-10-04 06:21 | NUR ---
Maria M aleman in EDM - 10/04/20 at 0624 by IDRIS pt starting to wake up, still groggy and wobbly on standing. dc orders ready, after pt is able to stand and ready to go.
--- NOTE | 2020-10-04 06:24 | NUR ---
pt sleeping and beginning to wake up. pt has a tele psych request, and has meds she needs to take, but has been unable to as pt has been asleep most of the night after being medicated early on in pts stay due to heavy anxiety, hyperventilation and unable to calm down on admission to ER. no acute distress, good aeration and maintaining airway with good oxygenation
--- NOTE | 2020-10-04 06:49 | NUR ---
REPORT AND CARE TO DAY SHIFT RN
--- NOTE | 2020-10-04 07:00 | NUR ---
Care assumed, pt checked and VS reassessed. Pt sleeping in room at this time with no acute distress noted. Teledoc machine available in room and ready when pt awakens.
--- NOTE | 2020-10-04 07:02 | NUR ---
PER THROUGHPUT CANCELLED TELEPSYCH
--- NOTE | 2020-10-04 08:12 | NUR ---
Pt still asleep, NAD (no acute distress), and SpO2 WNL on RA.
--- NOTE | 2020-10-04 09:00 | NUR ---
Pt remains deeply asleep with VS stable. Unable to perform full assessment yet secondary to drowsiness. Drowsiness most likely related to medications given prior to my arrival.
--- NOTE | 2020-10-04 10:25 | NUR ---
lockstitch binder attempted to wake pt for assessment but pt remains too sedated at this time. He states he will try again in a couple of hours. Pt remains in NAD.
--- NOTE | 2020-10-04 11:41 | NUR ---
Pt continues to be very drowsy, likely secondary to meds given prior, and difficult to awaken. VS reassessed. NAD noted.
--- NOTE | 2020-10-04 12:00 | NUR ---
Pt sitting up eating lunch tray at this time.
--- NOTE | 2020-10-04 12:22 | NUR ---
Pt on R side with covers pulled over her head. Easily awakens and states she is having suicidal thoughts without plans at this time. pt already with 1:[address] and all belongings removed prior to my start of shift. Room search completed again. network firewall engineer notified of pt able to be assessed now by throughput RN.
[2020-10-04 12:25] VITALS: BP 118/78
--- NOTE | 2020-10-04 12:50 | NUR ---
Shree, applied psychology professor, present at bedside for assessment.
--- NOTE | 2020-10-04 13:07 | NUR ---
Pt able to get up to bathroom, give a UA sample, and then come back to bed. After assessment with pt, EMILIANO Swann states [facility] can take pt today at 1430. He is going to have a prescription for pt's med and d/c paperwork ready and pt is to go by cab to the facility. Pt states she is agreeable with plan and states she does not really feel suicidal, just very anxious.
[2020-10-04 13:28] LABS: AMPHETAMINE SCREEN, URINE Positive (Negative); BARBITURATE SCREEN, URINE Negative (Negative); BENZODIAZEPINE SCREEN, URINE Negative (Negative); CANNABINOID SCREEN, URINE Negative (Negative); COCAINE SCREEN, URINE Negative (Negative); METHADONE SCREEN, URINE Negative (Negative); OPIATE SCREEN, URINE Negative (Negative)
== END 2020-10-04 14:24 | disposition home or self-care (01) ==
LOC: ED 11:30
DX: R07.89 Other chest pain (principal); R06.00 Dyspnea, unspecified; F41.1 Generalized anxiety disorder; R06.4 Hyperventilation; F17.200 Nicotine dependence, unspecified, uncomplicated; E11.9 Type 2 diabetes mellitus without complications; I10 Essential (primary) hypertension; J44.9 Chronic obstructive pulmonary disease, unspecified; G43.909 Migraine, unspecified, not intractable, without status migrainosus; G40.909 Epilepsy, unspecified, not intractable, without status epilepticus; Z90.49 Acquired absence of other specified parts of digestive tract; Z88.0 Allergy status to penicillin; Z88.2 Allergy status to sulfonamides
CPT/HCPCS: 36415; 71045; 80053; 80143; 80179; 80307; 80320; 84484; 84703; 85025; 93005; 94640; 96372; 99285; J3486; G0480

== ENCOUNTER 2020-12-05 13:37 | Emergency (ER) | payer MEDICAID ==
[~2020-12-05] VITALS: Ht 160 cm; Wt 81.0 kg
[~2020-12-05 13:37] MED LIST changes: -HYDR-1067 PO; +HYDR-2214 PO
[2020-12-05] MEDS ORDERED: NEOSPORIN OINT. PKT 1 PACKET ONE (15:24)
[2020-12-05 15:35] VITALS: BP 121/61
--- NOTE | 2020-12-05 15:35 | NUR ---
WOUND CLEANED/DRESSED. PT DISCHARGED FROM TRIAGE
== END 2020-12-05 15:37 | disposition home or self-care (01) ==
LOC: ED 15:25
DX: L02.416 Cutaneous abscess of left lower limb (principal); F17.210 Nicotine dependence, cigarettes, uncomplicated; G43.909 Migraine, unspecified, not intractable, without status migrainosus; I10 Essential (primary) hypertension; J44.9 Chronic obstructive pulmonary disease, unspecified; G40.909 Epilepsy, unspecified, not intractable, without status epilepticus; E11.65 Type 2 diabetes mellitus with hyperglycemia; Z86.718 Personal history of other venous thrombosis and embolism; Z90.49 Acquired absence of other specified parts of digestive tract
CPT/HCPCS: 99406